=== PATIENT | female | born 1935 | race Caucasian/White ===

== ENCOUNTER 2017-06-06 13:08 | Inpatient (IN) ==
--- NOTE | 2017-06-06 13:20 | Emergency Department Note ---
Disposition Clinical Impression: Elevated serum creatinine UTI (urinary tract infection) Qualifiers: Urinary tract infection type: site unspecified Hematuria presence: without hematuria Qualified Code(s): N39.0 - Urinary tract infection, site not specified Altered mental status Qualifiers: Altered mental status type: unspecified Qualified Code(s): R41.82 - Altered mental status, unspecified Leukocytosis Qualifiers: Leukocytosis type: unspecified Qualified Code(s): D72.829 - Elevated white blood cell count, unspecified Disposition: Admitted As Inpatient Condition: Fair Referrals: Arturo Sanchez, [Non-Partnered Physician] - Forms: ED Satisfaction Letter Time of Disposition: 17:11 General Adult HPI - General Chief complaint: ED Weakness Stated complaint: Weakness Time Seen by Provider: 06/06/17 13:17 Source: patient, family Mode of arrival: ambulatory Limitations: no limitations Nursing Notes Reviewed: Yes Vital Signs Reviewed: Yes - History of Present Illness HPI Narrative: Patient is an 82-year-old female with past medical history of dementia, hypertension. She presents today with [id number] who is concerned for altered mental status above her baseline, frequent falls, fatigue, falling asleep at home. According to [id number], the patient was seen at [facility] on Friday and Friday due to slurred speech and some other neurologic complaints. She states that they did a workup there and eventually sent her home. During that stay, the patient did have elevated blood pressure and was eventually sent home with Lopressor and clonidine to take as needed for high blood pressure. She states that she was told that the patient could have had TIAs. She states that over the past 2-3 days, the patient has become more fatigued, has had falls at home, refusing to eat, falls asleep multiple times a day and even while you are talking to her. Did not notice any specific facial drooping or slurring of speech. The patient herself says that she feels tired, denies any numbness, tingling, weakness, abdominal pain, nausea or vomiting. She does state that she had chest pain one to 2 days ago that was in the center of her chest, no radiation, no associated sweating. Daughter in law also notes that the patient had blood in her stool on Friday and she is unsure if there was a workup done for this complaint. Pain Scale: 0 - Related Data Allergies Allergy/AdvReac Type Severity Reaction Status Date / Time No Known Allergies Allergy Verified 06/06/17 13:15 All systems ED: reviewed and negative except as stated. Constitutional: Denies: fever Cardiovascular: Reports: chest pain. Denies: palpitations Respiratory: Denies: cough, dyspnea, wheezes Gastrointestinal: Reports: melena. Denies: abdominal pain, nausea, vomiting, diarrhea, constipation, hematemesis Genitourinary: Denies: urgency, dysuria, frequency, hematuria Neurological: Reports: confusion, other. Denies: weakness, numbness, paresthesias Endocrine: Reports: fatigue Past Medical History - Past Medical History Attestation: Yes The following information was validated with the patient. Source: patient Medical history: Reports: dementia, hyperlipidemia, hypertension, renal disease , TIA Psychiatric history: Reports: anxiety, depression - Social History Smoking Status: Never smoker Smokeless Tobacco Status: No Alcohol use: Reports: none Drug use: Reports: unknown Physical Exam - General Limitations: no limitations General appearance: alert, other (appears tired on exam, falling asleep during interview) - Head Head exam: atraumatic, normocephalic, normal inspection - Eye Eye exam: Present: normal appearance, PERRL, EOMI - ENT ENT exam: normal exam, normal oropharynx, mucous membranes moist - Neck Neck exam: Present: normal inspection, full ROM, trachea midline - Chest Chest inspection: Present: normal inspection, symmetric chest wall rise - Respiratory Respiratory exam: Present: normal lung sounds bilaterally - Cardiovascular Cardiovascular exam: Present: regular rate, normal rhythm, normal heart sounds - Abdominal Exam Abdominal exam: Present: soft, Non-Tender. Absent: tenderness, distention, guarding, rebound, rigidity - Extremities Exam Extremities exam: Present: normal inspection. Absent: tenderness, pedal edema - Neurological Exam Neurological exam: Present: other (sleepy during exam, otherwise no focal neuro deficits. Oriented to person and place) Course Course Narrative: Vital signs within normal limits on physical exam. She was sleepy throughout the entire exam and fell asleep once or twice. Patient had no focal neurologic deficits on exam, oriented to person and place. Physical exam was fairly benign. Lungs were clear to auscultation, abdomen was soft and nontender. Chest x-ray was negative for any acute cardiopulmonary process. White blood cell count elevated at 14.7. Creatinine elevated at 1.7, I do not have a previous lab value to compare this to the family does state that she has a history of chronic kidney disease. Urinalysis shows signs of UTI. CT the head was negative for any acute intracranial process. Due to altered mental status above her baseline, frequent falls, UTI, will admit for further care. Chest X-Ray 06/06/17 13:31 IMPRESSION: No significant oval change. No acute findings. D/ / Vincent Guzman MD / Vincent Guzman MD Interpreting Provider: Vincent Guzman MD Head CT 06/06/17 13:32 IMPRESSION: 1. No acute intracranial abnormality. 2. Mild age-appropriate diffuse atrophy with minimal chronic small vessel ischemic changes. D/ / Dg Bagley MD / Dg Bagley MD Interpreting Provider: Dg Bagley MD Vital Signs Temperature 98.4 F 06/06/17 13:09 Pulse Rate 92 06/06/17 13:09 Respiratory Rate 18 06/06/17 13:09 Blood Pressure 122/74 06/06/17 13:09 O2 Sat by Pulse Oximetry 94 06/06/17 13:09 Temperature 98.4 F 06/06/17 13:09 Pulse Rate 63 06/06/17 16:39 Respiratory Rate 18 06/06/17 16:39 Blood Pressure 128/53 06/06/17 16:39 O2 Sat by Pulse Oximetry 94 06/06/17 16:39 Oxygen Delivery Oxygen Delivery Room Air Medical Decision Making - [facility] Narrative Medical decision making narrative: Vital signs within normal limits on physical exam. She was sleepy throughout the entire exam and fell asleep once or twice. Patient had no focal neurologic deficits on exam, oriented to person and place. Physical exam was fairly benign. Lungs were clear to auscultation, abdomen was soft and nontender. Chest x-ray was negative for any acute cardiopulmonary process. White blood cell count elevated at 14.7. Creatinine elevated at 1.7, I do not have a previous lab value to compare this to the family does state that she has a history of chronic kidney disease. Urinalysis shows signs of UTI. CT the head was negative for any acute intracranial process. Due to altered mental status above her baseline, frequent falls, UTI, will admit for further care. - Medical Records Medical records reviewed: Yes I reviewed the patient's medical records. - Lab Data Lab results reviewed: Yes I reviewed the patient's lab results. Result diagrams: 06/06/17 13:31 06/06/17 13:31 Lab Results 06/06/17 06/06/17 06/06/17 Range/Units 13:31 13:31 13:47 WBC 14.7 H (4.3-11.1) K/mcL RBC 4.02 (3.82-4.97) M/mcL Hgb 11.9 (11.5-15.4) g/dL Hct 36.9 (35.3-44.9) % MCV 91.8 (83.0-100.0) fL MCH 29.6 (28.0-33.3) pg MCHC 32.2 (31.6-35.5) g/dL RDW 12.4 (11.5-14.5) % Plt Count 178 (140-400) K/mcL MPV 10.3 (9.4-12.4) fL Immature Gran % 1.0 (0-4) % Seg Neutrophils % 80.3 % Lymphocytes % 12.8 % Monocytes % 5.2 % Eosinophils % 0.5 % Basophils % 0.2 % Neutrophils # 11.8 H (1.6-8.9) K/mcL Lymphocytes # 1.9 (0.6-4.6) K/mcL Monocytes # 0.8 (0.0-1.3) K/mcL Eosinophils # 0.1 (0.0-0.6) K/mcL Basophils # 0.0 (0.0-0.2) K/mcL Sodium 139 (136-145) mEq/L Potassium 3.7 (3.5-5.1) mEq/L Chloride 108 H (98-107) mEq/L Carbon Dioxide 20 L (23-29) mEq/L BUN 38 H (8-23) mg/dL Creatinine 1.72 H (0.60-1.20) mg/dL Est GFR ( Amer) 34 L (> 60) Est GFR (Non-Af Amer) 28 L (> 60) BUN/Creatinine Ratio 22 (6-26) Glucose 133 H (70-105) mg/dL Calculated Osmolality 299 (280-300) Lactic Acid (0.5-2.2) mmol/L Calcium 9.5 (8.6-10.3) mg/dL Total Bilirubin 0.5 (0.3-1.0) mg/dL AST 20 (13-39) Units/L ALT 15 (7-52) Units/L Alkaline Phosphatase 71 (34-104) Units/L Troponin I 0.05 H* (< 0.04) ng/mL Serum Total Protein 6.5 (6.4-8.9) g/dL Albumin 3.9 (3.5-5.7) g/dL Globulin 2.6 (2.4-3.5) g/dL Albumin/Globulin Ratio 1.5 (1.1-2.2) TSH 3.842 (0.340-5.600) mcIU/mL Urine Color (Yellow) Urine Clarity (Clear) Urine pH (5.0-8.0) pH Units Ur Specific [place] (1.010-1.025) Urine Protein (Neg-Trace) mg/dL Urine Glucose (UA) (Normal) mg/dL Urine Ketones (Negative) mg/dL Urine Blood (Negative) Urine Nitrite (Negative) Urine Bilirubin (Negative) Urine Urobilinogen (Normal) mg/dL Ur Leukocyte Esterase (Negative) Urine Microscopic RBC (0-3) per hpf Urine Microscopic WBC (0-3) per hpf Ur Squamous Epith Cells (None-Few) per lpf Urine Bacteria (None-Few) per hpf Hyaline Casts (None-Few) per lpf Ur Culture Indicated? (NO) Urine Opiates Screen Negative (Tuyrrw=870) ng/mL Ur Barbiturates Screen Negative (Vroniy=560) ng/mL Ur Phencyclidine Scrn Negative (Cutoff=25) ng/mL Ur Amphetamines Screen Negative (Txwtpt=8735) ng/mL U Benzodiazepines Scrn Negative (Ghning=489) ng/mL Urine Cocaine Screen Negative (Cutoff= 300) ng/mL U Marijuana (THC) Screen Negative (Cutoff = 50) ng/mL 06/06/17 06/06/17 Range/Units 13:49 13:51 WBC (4.3-11.1) K/mcL RBC (3.82-4.97) M/mcL Hgb (11.5-15.4) g/dL Hct (35.3-44.9) % MCV (83.0-100.0) fL MCH (28.0-33.3) pg MCHC (31.6-35.5) g/dL RDW (11.5-14.5) % Plt Count (140-400) K/mcL MPV (9.4-12.4) fL Immature Gran % (0-4) % Seg Neutrophils % % Lymphocytes % % Monocytes % % Eosinophils % % Basophils % % Neutrophils # (1.6-8.9) K/mcL Lymphocytes # (0.6-4.6) K/mcL Monocytes # (0.0-1.3) K/mcL Eosinophils # (0.0-0.6) K/mcL Basophils # (0.0-0.2) K/mcL Sodium (136-145) mEq/L Potassium (3.5-5.1) mEq/L Chloride (98-107) mEq/L Carbon Dioxide (23-29) mEq/L BUN (8-23) mg/dL Creatinine (0.60-1.20) mg/dL Est GFR ( Amer) (> 60) Est GFR (Non-Af Amer) (> 60) BUN/Creatinine Ratio (6-26) Glucose (70-105) mg/dL Calculated Osmolality (280-300) Lactic Acid 1.2 (0.5-2.2) mmol/L Calcium (8.6-10.3) mg/dL Total Bilirubin (0.3-1.0) mg/dL AST (13-39) Units/L ALT (7-52) Units/L Alkaline Phosphatase (34-104) Units/L Troponin I (< 0.04) ng/mL Serum Total Protein (6.4-8.9) g/dL Albumin (3.5-5.7) g/dL Globulin (2.4-3.5) g/dL Albumin/Globulin Ratio (1.1-2.2) TSH (0.340-5.600) mcIU/mL Urine Color Dark Yellow (Yellow) Urine Clarity Cloudy A (Clear) Urine pH 5.5 (5.0-8.0) pH Units Ur Specific [place] 1.028 H (1.010-1.025) Urine Protein Trace (Neg-Trace) mg/dL Urine Glucose (UA) Normal (Normal) mg/dL Urine Ketones Trace H (Negative) mg/dL Urine Blood Small H (Negative) Urine Nitrite Negative (Negative) Urine Bilirubin Small H (Negative) Urine Urobilinogen Normal (Normal) mg/dL Ur Leukocyte Esterase Large H (Negative) Urine Microscopic RBC 3-5 H (0-3) per hpf Urine Microscopic WBC 50-100 H (0-3) per hpf Ur Squamous Epith Cells Many H (None-Few) per lpf Urine Bacteria None Seen (None-Few) per hpf Hyaline Casts Few (None-Few) per lpf Ur Culture Indicated? NO. (NO) Urine Opiates Screen (Sqqdej=842) ng/mL Ur Barbiturates Screen (Wzllau=523) ng/mL Ur Phencyclidine Scrn (Cutoff=25) ng/mL Ur Amphetamines Screen (Bnomxv=4556) ng/mL U Benzodiazepines Scrn (Jfxokw=023) ng/mL Urine Cocaine Screen (Cutoff= 300) ng/mL U Marijuana (THC) Screen (Cutoff = 50) ng/mL - Radiology Data Radiology results reviewed: Yes I reviewed the patient's radiology results. Chest X-Ray 06/06/17 13:31 IMPRESSION: No significant oval change. No acute findings. D/ / Vincent Guzman MD / Vincent Guzman MD Interpreting Provider: Vincent Guzman MD Head CT 06/06/17 13:32 IMPRESSION: 1. No acute intracranial abnormality. 2. Mild age-appropriate diffuse atrophy with minimal chronic small vessel ischemic changes. D/ / Dg Bagley MD / Dg Bagley MD Interpreting Provider: Dg Bagley MD - EKG Data EKG #1 EKG attestation: Yes I reviewed and interpreted this EKG. EKG results narrative: 06/06/2017 at 13:25. A. fib. Rate 109. QRS 81. QTC 377. Mild left axis deviation. No acute ST elevation or depression. Huyen - Huyen Situation: Demographics, MOA Background: Presenting Complaint, Relevant PMH, Meds, & Allergies Assessment: Vital Signs, Course and respsone to treatment, Exam Concerns, Patient/Family Expectation, Pertinant Lab Results, Outstanding Labs Recommendation: Barrier(s) to disposition, Recommendation based on pending studies, treatments, or consults SAshwin Report Given to: Dr. Jaxson Matson Repor Time: 17:11 Attestation Statement - Attestation Attestation: I, Manny Quintana DO, examined this patient [id number] and my medical decision-making was reviewed with Dr. Jeremiah Hernandez, Resident Physician. I agree with the documented findings, disposition and treatment plan as described except to the extent set forth below. Please see my progress notes for details.
[2017-06-06 14:03] LABS: Bilirubin,Urine Small (Negative); Blood,Urine Small (Negative); Clarity,Urine Cloudy (Clear); Color,Urine Dark Yellow (Yellow); Glucose,Urine (UA) Normal (Normal); Ketones,Urine Trace mg/dL (Negative); Leukocyte Esterase,Urine Large (Negative); Nitrite,Urine Negative (Negative); PH,Urine 5.5 pH Units (5.0-8.0); Protein,Urine Trace mg/dL (Neg-Trace); Specific Gravity,Urine 1.028 (1.010-1.025); Urobilinogen,Urine Normal (Normal)
[2017-06-06 14:04] LABS: Amphetamine Screen,Urine Negative ng/mL (Cutoff=1000); Barbiturate Screen,Urine Negative ng/mL (Cutoff=200); Benzodiazepines Screen,Urine Negative ng/mL (Cutoff=200); Cannabinoid Screen,Urine Negative ng/mL (Cutoff = 50); Cocaine Screen,Urine Negative ng/mL (Cutoff= 300); Opiate Screen,Urine Negative ng/mL (Cutoff=300); Phencyclidine Screen,Urine Negative ng/mL (Cutoff=25)
[2017-06-06 14:05] LABS: Bacteria,Urine None Seen per hpf (None-Few); Hyaline Casts,Urine Few per lpf (None-Few); Squamous Epithelial Cell,Urine Many per lpf (None-Few); WBC,Urine 50-100 per hpf (0-3)
[2017-06-06 14:08] LABS: Basophils % 0.2 %; Eosinophils # 0.1 K/mcL (0.0-0.6); Eosinophils % 0.5 %; Hematocrit 36.9 % (35.3-44.9); Hemoglobin 11.9 g/dL (11.5-15.4); Lymphocytes # 1.9 K/mcL (0.6-4.6); Lymphocytes % 12.8 %; Mean Corpuscular HGB Conc 32.2 g/dL (31.6-35.5); Mean Corpuscular Hemoglobin 29.6 pg (28.0-33.3); Mean Corpuscular Volume 91.8 fL (83.0-100.0); Mean Platelet Volume 10.3 fL (9.4-12.4); Monocytes # 0.8 K/mcL (0.0-1.3); Monocytes % 5.2 %; Neutrophils # 11.8 K/mcL (1.6-8.9); Platelet Count 178 K/mcL (140-400); Red Blood Count 4.02 M/mcL (3.82-4.97); Red Cell Distribution Width 12.4 % (11.5-14.5); Segmented Neutrophils % 80.3 %
[2017-06-06 14:18] LABS: Albumin 3.9 g/dL (3.5-5.7); Albumin/Globulin Ratio 1.5 (1.1-2.2); Bilirubin,Total 0.5 mg/dL (0.3-1.0); Calcium 9.5 mg/dL (8.6-10.3); Globulin 2.6 g/dL (2.4-3.5); Potassium 3.7 mEq/L (3.5-5.1); Total Protein 6.5 g/dL (6.4-8.9)
--- NOTE | 2017-06-06 14:18 | Emergency Department Note ---
Disposition Clinical Impression: Elevated serum creatinine UTI (urinary tract infection) Qualifiers: Urinary tract infection type: site unspecified Hematuria presence: without hematuria Qualified Code(s): N39.0 - Urinary tract infection, site not specified Altered mental status Qualifiers: Altered mental status type: unspecified Qualified Code(s): R41.82 - Altered mental status, unspecified Leukocytosis Qualifiers: Leukocytosis type: unspecified Qualified Code(s): D72.829 - Elevated white blood cell count, unspecified Disposition: Admitted As Inpatient Condition: Fair Referrals: Arturo Sanchez DO [Primary Care Provider] - Forms: ED Satisfaction Letter Time of Disposition: 17:46 General Adult HPI - General Chief complaint: ED Weakness Stated complaint: Weakness Time Seen by Provider: 06/06/17 13:17 Source: patient, family Mode of arrival: ambulatory Limitations: no limitations - History of Present Illness Pain Scale: 0 - Related Data Home Medications Medication Instructions Recorded Confirmed Donepezil [Aricept] 10 mg PO HS 06/06/17 06/06/17 Doxazosin Mesylate [Cardura] 8 mg PO DAILY 06/06/17 06/06/17 Ergocalciferol (VITAMIN D2) 50,000 unit PO QWEEK 06/06/17 06/06/17 [Vitamin D2] Lisinopril [Zestril] 5 mg PO BID 06/06/17 06/06/17 Memantine HCl 10 mg PO BID 06/06/17 06/06/17 Metoprolol [Lopressor] 25 mg PO BID 06/06/17 06/06/17 Quetiapine Fumarate [Seroquel] 50 mg PO BID 06/06/17 06/06/17 Sertraline [Zoloft] 200 mg PO DAILY 06/06/17 06/06/17 Simvastatin [Zocor] 20 mg PO HS 06/06/17 06/06/17 cloNIDine HCl [CloNIDine HCl] 0.1 mg PO TID PRN 06/06/17 06/06/17 Allergies Allergy/AdvReac Type Severity Reaction Status Date / Time No Known Allergies Allergy Verified 06/06/17 13:15 Past Medical History - Past Medical History Medical history: Reports: dementia, hyperlipidemia, hypertension, renal disease , TIA Psychiatric history: Reports: anxiety, depression - Social History Smoking Status: Never smoker Smokeless Tobacco Status: No Alcohol use: Reports: none Drug use: Reports: unknown Physical Exam - General Limitations: no limitations General appearance: alert Course Vital Signs Temperature 98.4 F 06/06/17 13:09 Pulse Rate 92 06/06/17 13:09 Respiratory Rate 18 06/06/17 13:09 Blood Pressure 122/74 06/06/17 13:09 O2 Sat by Pulse Oximetry 94 06/06/17 13:09 Temperature 98.4 F 06/06/17 13:09 Pulse Rate 63 06/06/17 16:39 Respiratory Rate 18 06/06/17 16:39 Blood Pressure 128/53 06/06/17 16:39 O2 Sat by Pulse Oximetry 94 06/06/17 16:39 Oxygen Delivery Oxygen Delivery Room Air Medical Decision Making - Lab Data Result diagrams: 06/06/17 13:31 06/06/17 13:31 Lab Results 06/06/17 06/06/17 06/06/17 Range/Units 13:31 13:31 13:47 WBC 14.7 H (4.3-11.1) K/mcL RBC 4.02 (3.82-4.97) M/mcL Hgb 11.9 (11.5-15.4) g/dL Hct 36.9 (35.3-44.9) % MCV 91.8 (83.0-100.0) fL MCH 29.6 (28.0-33.3) pg MCHC 32.2 (31.6-35.5) g/dL RDW 12.4 (11.5-14.5) % Plt Count 178 (140-400) K/mcL MPV 10.3 (9.4-12.4) fL Immature Gran % 1.0 (0-4) % Seg Neutrophils % 80.3 % Lymphocytes % 12.8 % Monocytes % 5.2 % Eosinophils % 0.5 % Basophils % 0.2 % Neutrophils # 11.8 H (1.6-8.9) K/mcL Lymphocytes # 1.9 (0.6-4.6) K/mcL Monocytes # 0.8 (0.0-1.3) K/mcL Eosinophils # 0.1 (0.0-0.6) K/mcL Basophils # 0.0 (0.0-0.2) K/mcL Sodium 139 (136-145) mEq/L Potassium 3.7 (3.5-5.1) mEq/L Chloride 108 H (98-107) mEq/L Carbon Dioxide 20 L (23-29) mEq/L BUN 38 H (8-23) mg/dL Creatinine 1.72 H (0.60-1.20) mg/dL Est GFR ( Amer) 34 L (> 60) Est GFR (Non-Af Amer) 28 L (> 60) BUN/Creatinine Ratio 22 (6-26) Glucose 133 H (70-105) mg/dL Calculated Osmolality 299 (280-300) Lactic Acid (0.5-2.2) mmol/L Calcium 9.5 (8.6-10.3) mg/dL Total Bilirubin 0.5 (0.3-1.0) mg/dL AST 20 (13-39) Units/L ALT 15 (7-52) Units/L Alkaline Phosphatase 71 (34-104) Units/L Troponin I 0.05 H* (< 0.04) ng/mL Serum Total Protein 6.5 (6.4-8.9) g/dL Albumin 3.9 (3.5-5.7) g/dL Globulin 2.6 (2.4-3.5) g/dL Albumin/Globulin Ratio 1.5 (1.1-2.2) TSH 3.842 (0.340-5.600) mcIU/mL Urine Color (Yellow) Urine Clarity (Clear) Urine pH (5.0-8.0) pH Units Ur Specific [place] (1.010-1.025) Urine Protein (Neg-Trace) mg/dL Urine Glucose (UA) (Normal) mg/dL Urine Ketones (Negative) mg/dL Urine Blood (Negative) Urine Nitrite (Negative) Urine Bilirubin (Negative) Urine Urobilinogen (Normal) mg/dL Ur Leukocyte Esterase (Negative) Urine Microscopic RBC (0-3) per hpf Urine Microscopic WBC (0-3) per hpf Ur Squamous Epith Cells (None-Few) per lpf Urine Bacteria (None-Few) per hpf Hyaline Casts (None-Few) per lpf Ur Culture Indicated? (NO) Urine Opiates Screen Negative (Ushybv=355) ng/mL Ur Barbiturates Screen Negative (Lmubwo=275) ng/mL Ur Phencyclidine Scrn Negative (Cutoff=25) ng/mL Ur Amphetamines Screen Negative (Yilzog=4610) ng/mL U Benzodiazepines Scrn Negative (Jwazbf=765) ng/mL Urine Cocaine Screen Negative (Cutoff= 300) ng/mL U Marijuana (THC) Screen Negative (Cutoff = 50) ng/mL 06/06/17 06/06/17 Range/Units 13:49 13:51 WBC (4.3-11.1) K/mcL RBC (3.82-4.97) M/mcL Hgb (11.5-15.4) g/dL Hct (35.3-44.9) % MCV (83.0-100.0) fL MCH (28.0-33.3) pg MCHC (31.6-35.5) g/dL RDW (11.5-14.5) % Plt Count (140-400) K/mcL MPV (9.4-12.4) fL Immature Gran % (0-4) % Seg Neutrophils % % Lymphocytes % % Monocytes % % Eosinophils % % Basophils % % Neutrophils # (1.6-8.9) K/mcL Lymphocytes # (0.6-4.6) K/mcL Monocytes # (0.0-1.3) K/mcL Eosinophils # (0.0-0.6) K/mcL Basophils # (0.0-0.2) K/mcL Sodium (136-145) mEq/L Potassium (3.5-5.1) mEq/L Chloride (98-107) mEq/L Carbon Dioxide (23-29) mEq/L BUN (8-23) mg/dL Creatinine (0.60-1.20) mg/dL Est GFR ( Amer) (> 60) Est GFR (Non-Af Amer) (> 60) BUN/Creatinine Ratio (6-26) Glucose (70-105) mg/dL Calculated Osmolality (280-300) Lactic Acid 1.2 (0.5-2.2) mmol/L Calcium (8.6-10.3) mg/dL Total Bilirubin (0.3-1.0) mg/dL AST (13-39) Units/L ALT (7-52) Units/L Alkaline Phosphatase (34-104) Units/L Troponin I (< 0.04) ng/mL Serum Total Protein (6.4-8.9) g/dL Albumin (3.5-5.7) g/dL Globulin (2.4-3.5) g/dL Albumin/Globulin Ratio (1.1-2.2) TSH (0.340-5.600) mcIU/mL Urine Color Dark Yellow (Yellow) Urine Clarity Cloudy A (Clear) Urine pH 5.5 (5.0-8.0) pH Units Ur Specific [place] 1.028 H (1.010-1.025) Urine Protein Trace (Neg-Trace) mg/dL Urine Glucose (UA) Normal (Normal) mg/dL Urine Ketones Trace H (Negative) mg/dL Urine Blood Small H (Negative) Urine Nitrite Negative (Negative) Urine Bilirubin Small H (Negative) Urine Urobilinogen Normal (Normal) mg/dL Ur Leukocyte Esterase Large H (Negative) Urine Microscopic RBC 3-5 H (0-3) per hpf Urine Microscopic WBC 50-100 H (0-3) per hpf Ur Squamous Epith Cells Many H (None-Few) per lpf Urine Bacteria None Seen (None-Few) per hpf Hyaline Casts Few (None-Few) per lpf Ur Culture Indicated? NO. (NO) Urine Opiates Screen (Fiuvvh=443) ng/mL Ur Barbiturates Screen (Rehcyb=757) ng/mL Ur Phencyclidine Scrn (Cutoff=25) ng/mL Ur Amphetamines Screen (Nkhoqa=6223) ng/mL U Benzodiazepines Scrn (Mvhvhw=987) ng/mL Urine Cocaine Screen (Cutoff= 300) ng/mL U Marijuana (THC) Screen (Cutoff = 50) ng/mL Attestation Statement - Attestation Attestation: I, Manny Quintana DO, examined this patient [id number] and my medical decision-making was reviewed with Dr. Jeremiah Hernandez, Resident Physician. I agree with the documented findings, disposition and treatment plan as described except to the extent set forth below. Please see my progress notes for details. 82-year-old female presents to the emergency room for evaluation of generalized malaise, weakness, multiple falls. Patient is concerned at this point. She is currently in the care of the [id number]. Mdatelke-jd-awf's primary care provider at their home. Patient lives at home with family issues and no specific distress. Vital signs are reviewed and are stable. Physical exam is relatively unremarkable this point. Patient's head is atraumatic pupils are reactive to discharge her muscles are intact resources. Trachea is midline. Patient's full range of motion the neck. Lungs are clear heart is regular. Abdomen is soft nontender nondistended with no guarding no rigidity no peritoneal symptoms. Patient moves all 4 extremities with purpose. She has no signs of pitting edema. She has no neurologic deficits on exam. No ataxia no slurred speech during my physical exam. Patient is concerning for possible progression of her dementia versus infectious etiology or metabolic source to the symptoms are this time. Patient is otherwise clinically stable. Disposition will be determined workup and treatment course are established. Family is concerned because she is having a more difficult time a home with remembering things as well as being safe to be at home by herself for extended periods of time when the family is at work. They requested to possibly be placed into a [place] [facility] [place] and working on this and the outside setting already. Workup and treatment course will be completed and disposition will be determined. See detailed documentation of the physical exam, medical intervention, medical decision-making and disposition in the resident physician' s note. No critical care applied the patient's treatment course at this time. 1600 Patient has benign workup outside of [place] with slightly elevated troponin 0.05 and urinary tract infection. Urinary tract infection could be the source to the mentation related issues. He contacted be secondary to the renal insufficiency at this point. Patient denied any chest pain shortness of breath or other symptoms during these events also the weakness. Patient will be provided with antibiotic regimen. Will be admitted for definitive management and symptomatic control.
[2017-06-06 14:21] LABS: Troponin I 0.05 ng/mL (< 0.04)
[2017-06-06 14:30] LABS: Thyroid Stimulating Hormone 3.842 mcIU/mL (0.340-5.600)
[2017-06-06] MEDS ORDERED: cefTRIAXone 1,000 MG in Water for inj. (sterile) 20 ML 10 ML IVP ONE (16:15)
[2017-06-06] MEDS ORDERED: Aspirin 81 MG TAB.CHEW PO ONE (16:55)
[2017-06-06] MEDS ORDERED: Naloxone 0.4 MG/ML INJ IVP PRN (17:41)
--- NOTE | 2017-06-06 18:03 | Internal Med History&Physical ---
<Radames Oakley - Last Filed: 06/06/17 17:57> Date of Encounter: 06/06/17 Time of Encounter: 17:57 Assessment and Plan (1) CVA (cerebral vascular accident) Current visit: Yes Status: Suspected Family stated patient had slurred speech, frequent falls. Neurological exam nonfocal/nonlateralizing. CT scan of the head negative. Patient's EKG shows atrial fibrillation We will obtain echocardiogram, carotid Dopplers, MRI. PT/OT consult Speech therapy consult Start patient on aspirin, statin. Qualifiers: CVA mechanism: unspecified Qualified Code(s): I63.9 - Cerebral infarction, unspecified (2) CKD (chronic kidney disease) stage 4, GFR 15-29 ml/min Current visit: Yes Status: Chronic Family reports patient has history of CTD for Current GFR is 28. Continue to monitor. (3) Atrial fibrillation Current visit: Yes Status: Acute EKG shows irregularly irregular rhythm with a rate of [address]-T wave changes. Continue metoprolol. Patient is not on anticoagulation. Due to her frequent falls she is at risk for bleeding if started on anticoagulation. Qualifiers: Atrial fibrillation type: unspecified Qualified Code(s): I48.91 - Unspecified atrial fibrillation (4) Nausea vomiting and diarrhea Current visit: Yes Status: Acute Unclear etiology. reports foul smelling diarrhea has recent antibiotic use: start vanc PO for possible cdiff. Patient reports hematemesis and hematochezia. Hemoglobin 11.9 we will continue to trend. Fecal occult tests sent Abdominal exams within normal limits. Stool panel Zofran when necessary for nausea. Family reports she has had a colonoscopy in the past which has been negative no records on file. (5) History of dementia Current visit: Yes Status: Acute Patient has a history of dementia She follows Dr. Kelley outpatient. Previous MRI 2014 showed cerebral atrophy repeat MRI Patient is on Namenda and Aricept which will be continued. (6) Parkinsons disease Current visit: Yes Status: Suspected Patient has a resting right upper extremity tremor and a resting right lip tremor. Family reports a shuffling gait. She has frequent falls recently. Patient exhibits clogwheel rigidity Patient has a history of visual and auditory hallucinations Patient will need to follow-up with neurology outpatient. (7) Hypertension Current visit: Yes Status: Acute Patient has a history of hypertension Currently is controlled. Continue home medications of lisinopril, metoprolol, doxazosin Qualifiers: Hypertension type: essential hypertension Qualified Code(s): I10 - Essential (primary) hypertension (8) GI bleed Current visit: Yes Status: Suspected Plan as above. If hemoglobin trends down we will consult GI. Qualifiers: GI bleed type/associated pathology: unspecified gastrointestinal hemorrhage type Qualified Code(s): K92.2 - Gastrointestinal hemorrhage, unspecified (9) Altered mental status Current visit: Yes Status: Acute Unclear etiology. Infectious versus neurological continue to monitor Qualifiers: Altered mental status type: unspecified Qualified Code(s): R41.82 - Altered mental status, unspecified (10) Frequent falls Current visit: Yes Status: Acute Likely secondary to baseline Parkinson's disease on top of infectious process. consult pt/ot (11) Elevated troponin Current visit: Yes Status: Acute Patient denies chest pain Troponin of 0.05. Denies history of cardiac disease. EKG shows atrial fibrillation with a rate of [address]-T wave changes. Chest x-ray negative for acute changes. Current troponin. Echocardiogram Aspirin, statin, beta melisa (12) UTI (urinary tract infection) Current visit: Yes Status: Ruled-out Urinalysis shows WBCs and large leukocyte esterase, no bacteria, dirty catch no antibiotics needed. Qualifiers: Urinary tract infection type: site unspecified Hematuria presence: without hematuria Qualified Code(s): N39.0 - Urinary tract infection, site not specified (13) C. difficile diarrhea Current visit: Yes Status: Acute plan as above. Internal Medicine - H&P: HPI Chief complaint: Confusion Admitted From: Home Plans for Post Hospital Care: Transfer [facility] History of present illness: Ms. Pablo is a 82 year old female was brought to [facility] emergency room by her family for confusion. Family states on Friday patient had slurred speech and was confused and had a fall. This confusion and slurred speech and fall repeated on Friday and Friday. Family denies patient hitting her head/trauma secondary to falls. Patient's baseline is she is alert to self, place, time during most of the day but he have to be oriented by her family at times. Family denies facial drooping. They report patient has history of dementia, visual hallucinations and auditory hallucinations and was worked up for neurology outpatient in 2014. At that time she was started on Aricept and Namenda. On Friday patient started having nausea, vomiting and diarrhea. Patient told the family that her vomiting and diarrhea had blood in it however nobody in the family witnesses. Family denies any of these symptoms in other family members. Because patient became even more confused on Friday night. Family took patient to [facility] where she was found to have high blood pressure systolics in the 200s. There are no [facility] records as of yet. Family states patient was given multiple medications before her blood pressure improved including Nitropaste, Lopressor. Once her blood pressure improved patient was sent home on clonidine and metoprolol. Family denies patient being in contact with any sick people, recent traveling. Patient according to pharmacy records was recently prescribed cephalexin and family states she was recently treated with UTI. After returning from [facility] patient continues to have confusion and falls. This morning patient states she was getting out of bed but was too weak and therefore crawled out of the bedroom into the hallway. There she became tired and had to rest and at this time family found her. Patient has a history of hypertension, dementia, chronic kidney disease unknown etiology, hyperlipidemia. Denies history of stroke, TIA, heart disease. Past Med Surg Social Fam HX - Past Medical History Medical history: dementia, hyperlipidemia, hypertension, renal disease, TIA Psychiatric history: anxiety, depression - Social History Smoking Status: Never smoker Smokeless Tobacco Status: No Alcohol use: none Drug use: unknown Internal Medicine - H&P: Meds Donepezil [Aricept] 10 mg PO HS 06/06/17 [History] Doxazosin Mesylate [Cardura] 8 mg PO DAILY 06/06/17 [History] Ergocalciferol (VITAMIN D2) [Vitamin D2] 50,000 unit PO QWEEK 06/06/17 [History] Lisinopril [Zestril] 5 mg PO BID 06/06/17 [History] Memantine HCl 10 mg PO BID 06/06/17 [History] Metoprolol [Lopressor] 25 mg PO BID 06/06/17 [History] Quetiapine Fumarate [Seroquel] 50 mg PO BID 06/06/17 [History] Sertraline [Zoloft] 200 mg PO DAILY 06/06/17 [History] Simvastatin [Zocor] 20 mg PO HS 06/06/17 [History] cloNIDine HCl [CloNIDine HCl] 0.1 mg PO TID PRN 06/06/17 [History] 3 Allergy/AdvReac Type Severity Reaction Status Date / Time No Known Allergies Allergy Verified 06/06/17 13:15 All Systems PM: A 10-system review of systems was performed and is negative for pertinent findings except as documented above in the HPI. Review of systems: Constitutional: Denies fever, chills HEENT: Denies headache, vision changes, neck pain, sore throat, rhinorrhea Heart: Denies chest pain palpitations Lungs: Denies shortness of breath cough Abdomen: Denies abdominal pain reports nausea, vomiting, diarrhea, hematemesis, hematochezia Back: Denies back pain Kidney: Denies dysuria, hematuria Skin: warm and dry Extremities: Denies swelling, pain Neuro: Reports confusion, weakness, slurred speech - Constitutional Vitals: Temp Pulse Resp BP Pulse Ox 98.4 F 63 18 128/53 94 06/06/17 13:09 06/06/17 16:39 06/06/17 16:39 06/06/17 16:39 06/06/17 16:39 - Other Additional findings: General: Pleasant without distress HEENT: Head atraumatic, normocephalic, EOMI, PERRL, neck nontender to palpation , absent lymphadenopathy, Moist Mucous Membranes, right lip tremor Heart: Irregularly irregular rhythm Lungs: Clear to auscultation bilaterally Abdomen: Soft nontender, nondistended positive bowel sounds Skin: warm and dry Extremities: Absent pedal edema, Neuro: Cranial nerves II through XII intact, UE and LE sensation equal bilaterally, UE and LEstrength 4/5, alert and oriented to self but not to time, place, situation, Heel to gann not able to be done bilaterally due to weakness. , Unable to perform bilaterally finger to nose , Gait not tested due to weakness, b/l plantar reflexes downwards. right UE tremor. Vascular: Pedal and radial pulses 2 out of 4 Internal Med - H&P Results - Labs CBC & Chem 7: 06/06/17 13:31 06/06/17 13:31 Labs: Short CBC 06/06/17 Range/Units 13:31 WBC 14.7 H (4.3-11.1) K/mcL Hgb 11.9 (11.5-15.4) g/dL Hct 36.9 (35.3-44.9) % Plt Count 178 (140-400) K/mcL Neutrophils # 11.8 H (1.6-8.9) K/mcL BMP 06/06/17 13:31 Sodium 139 Potassium 3.7 Chloride 108 H Carbon Dioxide 20 L BUN 38 H Creatinine 1.72 H Glucose 133 H Calcium 9.5 Cardiac Enzymes 06/06/17 Range/Units 13:31 Troponin I 0.05 H* (< 0.04) ng/mL Liver Function 06/06/17 Range/Units 13:31 Total Bilirubin 0.5 (0.3-1.0) mg/dL AST 20 (13-39) Units/L ALT 15 (7-52) Units/L Alkaline Phosphatase 71 (34-104) Units/L Albumin 3.9 (3.5-5.7) g/dL Urine 06/06/17 Range/Units 13:49 Urine Color Dark Yellow (Yellow) Urine Clarity Cloudy A (Clear) Urine pH 5.5 (5.0-8.0) pH Units Ur Specific [place] 1.028 H (1.010-1.025) Urine Protein Trace (Neg-Trace) mg/dL Urine Glucose (UA) Normal (Normal) mg/dL - Impressions ITS Impressions Chest X-Ray 06/06/17 13:31 IMPRESSION: No significant oval change. No acute findings. D/ / Vincent Guzman MD / Vincent Guzman MD Interpreting Provider: Vincent Guzman MD Head CT 06/06/17 13:32 IMPRESSION: 1. No acute intracranial abnormality. 2. Mild age-appropriate diffuse atrophy with minimal chronic small vessel ischemic changes. D/ / Dg Bagley MD / Dg Bagley MD Interpreting Provider: Dg Bagley MD <Shiv Brewster - Last Filed: 06/06/17 19:06> Date of Encounter: 06/06/17 Assessment and Plan (1) C. difficile diarrhea Current visit: Yes Status: Acute (2) CVA (cerebral vascular accident) Current visit: Yes Status: Suspected Qualifiers: CVA mechanism: unspecified Qualified Code(s): I63.9 - Cerebral infarction, unspecified (3) Hypertension Current visit: Yes Status: Acute Qualifiers: Hypertension type: essential hypertension Qualified Code(s): I10 - Essential (primary) hypertension (4) Parkinsons disease Current visit: Yes Status: Suspected (5) GI bleed Current visit: Yes Status: Suspected Qualifiers: GI bleed type/associated pathology: unspecified gastrointestinal hemorrhage type Qualified Code(s): K92.2 - Gastrointestinal hemorrhage, unspecified (6) Atrial fibrillation Current visit: Yes Status: Acute Qualifiers: Atrial fibrillation type: unspecified Qualified Code(s): I48.91 - Unspecified atrial fibrillation (7) CKD (chronic kidney disease) stage 4, GFR 15-29 ml/min Current visit: Yes Status: Chronic Internal Medicine - H&P: HPI History of present illness: Ms. Pablo is a 82 year old female All Systems PM: A 10-system review of systems was performed and is negative for pertinent findings except as documented above in the HPI. - Constitutional Vitals: Temp Pulse Resp BP Pulse Ox 98.4 F 63 18 128/53 94 06/06/17 13:09 06/06/17 16:39 06/06/17 16:39 06/06/17 16:39 06/06/17 16:39 Internal Med - H&P Results - Labs CBC & Chem 7: 06/06/17 13:31 06/06/17 13:31 Labs: Short CBC 06/06/17 Range/Units 13:31 WBC 14.7 H (4.3-11.1) K/mcL Hgb 11.9 (11.5-15.4) g/dL Hct 36.9 (35.3-44.9) % Plt Count 178 (140-400) K/mcL Neutrophils # 11.8 H (1.6-8.9) K/mcL BMP 06/06/17 13:31 Sodium 139 Potassium 3.7 Chloride 108 H Carbon Dioxide 20 L BUN 38 H Creatinine 1.72 H Glucose 133 H Calcium 9.5 Cardiac Enzymes 06/06/17 Range/Units 13:31 Troponin I 0.05 H* (< 0.04) ng/mL Liver Function 06/06/17 Range/Units 13:31 Total Bilirubin 0.5 (0.3-1.0) mg/dL AST 20 (13-39) Units/L ALT 15 (7-52) Units/L Alkaline Phosphatase 71 (34-104) Units/L Albumin 3.9 (3.5-5.7) g/dL Urine 06/06/17 Range/Units 13:49 Urine Color Dark Yellow (Yellow) Urine Clarity Cloudy A (Clear) Urine pH 5.5 (5.0-8.0) pH Units Ur Specific [place] 1.028 H (1.010-1.025) Urine Protein Trace (Neg-Trace) mg/dL Urine Glucose (UA) Normal (Normal) mg/dL - Impressions ITS Impressions Chest X-Ray 06/06/17 13:31 IMPRESSION: No significant oval change. No acute findings. D/ / Vincent Guzman MD / Vincent Guzman MD Interpreting Provider: Vincent Guzman MD Head CT 06/06/17 13:32 IMPRESSION: 1. No acute intracranial abnormality. 2. Mild age-appropriate diffuse atrophy with minimal chronic small vessel ischemic changes. D/ / Dg Bagley MD / Dg Bagley MD Interpreting Provider: Dg Bagley MD - Attending Attestation I examined this patient and my medical decision-making was reviewed with the Resident Physician on 06/06/17. I agree with the documented findings, disposition and treatment plan as described except to the extent set forth below. Ms Pablo is 82 y/o female with hx of dementia presented to ED with profuse diarrhea and weakness. She has had multiple different issues recently including slurred speech, frequent falls, diarrhea and poor appetite. In ED she has had multiple episodes of diarrhea. Her EKG appears to be a fib but no history known. Exam Alert Comfortable Mucus membranes dry Heart reg No Wheeze Abd soft and nontender No edema I/P 1. Possible CVA 2. Probable C diff 3. HTN 4. Dementia Agree with assessment and plan as above. At this point patient is high risk for further neuro issues as well as complications from diarrhea, falls, probable C diff. She has been admitted inpatient.
[2017-06-06] MEDS ORDERED: Ondansetron 4 MG/2 ML VIAL IVP PRN (18:11)
[2017-06-06] MEDS ORDERED: *HR* Heparin 5,000 UNIT/ML VIAL IVP PRN ×2 (20:17)
[2017-06-06] MEDS: Vancomycin Oral Soln 250 MG/5 ML UDC PO SCH (21:32)
[2017-06-06 21:42] LABS: Hematocrit 32.6 % (35.3-44.9); Hemoglobin 10.6 g/dL (11.5-15.4); Mean Corpuscular HGB Conc 32.5 g/dL (31.6-35.5); Mean Corpuscular Hemoglobin 30.1 pg (28.0-33.3); Mean Corpuscular Volume 92.6 fL (83.0-100.0); Mean Platelet Volume 10.4 fL (9.4-12.4); Platelet Count 156 K/mcL (140-400); Red Blood Count 3.52 M/mcL (3.82-4.97); Red Cell Distribution Width 12.5 % (11.5-14.5)
[2017-06-06 21:49] LABS: INR 1.1; Prothrombin Time 11.4 Seconds (9.4-12.1)
[2017-06-06 21:51] LABS: Activated Partial Thrombo Time 24.6 Seconds (26.0-36.0)
[2017-06-06] MEDS ORDERED: *HR* Heparin 5,000 UNIT/ML VIAL SQ SCH (22:00)
[2017-06-06] MEDS: Heparin 25,000 UNIT/500 ML D5W 25,000 UNIT/500 ML BAG IVC SCH (22:55)
[2017-06-07 03:58] LABS: Basophils % 0.2 %; Eosinophils # 0.1 K/mcL (0.0-0.6); Eosinophils % 0.6 %; Hematocrit 31.9 % (35.3-44.9); Hemoglobin 10.5 g/dL (11.5-15.4); Immature Granulocytes % 0.7 % (0-4); Lymphocytes # 1.4 K/mcL (0.6-4.6); Lymphocytes % 10.6 %; Mean Corpuscular HGB Conc 32.9 g/dL (31.6-35.5); Mean Corpuscular Volume 91.1 fL (83.0-100.0); Mean Platelet Volume 10.4 fL (9.4-12.4); Monocytes # 0.8 K/mcL (0.0-1.3); Neutrophils # 10.5 K/mcL (1.6-8.9); Platelet Count 150 K/mcL (140-400); Red Cell Distribution Width 12.4 % (11.5-14.5); Segmented Neutrophils % 81.9 %
[2017-06-07 04:23] LABS: Calcium 8.9 mg/dL (8.6-10.3); Chol/HDL Ratio 2.8 (0-4.9); Potassium 3.3 mEq/L (3.5-5.1)
[2017-06-07] MEDS: Vancomycin Oral Soln 250 MG/5 ML UDC PO SCH ×4 (07:52→22:27)
[2017-06-07] MEDS: Aspirin 81 MG TAB.CHEW PO SCH (07:52)
[2017-06-07 08:48] LABS: Adenovirus Not Detected (Not Detect); Bordetella Pertussis Not Detected (Not Detect); Chlamydophila pneumoniae Not Detected (Not Detect); Coronavirus 229E Not Detected (Not Detect); Coronavirus HKU1 Not Detected (Not Detect); Coronavirus NL63 Not Detected (Not Detect); Coronavirus OC43 Not Detected (Not Detect); Human Metapneumovirus Not Detected (Not Detect); Human Rhinovirus/Enterovirus Not Detected (Not Detect); Influenza A Subtype 2009 H1 Not Detected (Not Detect); Influenza A Untypeable Not Detected (Not Detect); Influenza B Not Detected (Not Detect); Mycoplasma pneumoniae Not Detected (Not Detect); Parainfluenza Virus 1 Not Detected (Not Detect); Parainfluenza Virus 2 Not Detected (Not Detect); Parainfluenza Virus 3 Not Detected (Not Detect); Parainfluenza Virus 4 Not Detected (Not Detect); Respiratory Syncytial Virus Not Detected (Not Detect)
--- NOTE | 2017-06-07 09:40 | Internal Med Progress Note ---
Date of Encounter: 06/07/17 Time of Encounter: 09:00 - Assessment and plan (1) CVA (cerebral vascular accident) Current Visit: Yes Status: Suspected Assessment and plan: Acute CVA noted on MRI. Appears to be embolic from a fib. Continue ASA Statin started. Pt complaining of bilateral thigh pain. Will monitor on statin. Qualifiers: CVA mechanism: embolism Precerebral and cerebral artery: middle cerebral artery Laterality of affected vessel: right Qualified Code(s): I63.411 - Cerebral infarction due to embolism of right middle cerebral artery (2) C. difficile diarrhea Current Visit: Yes Status: Suspected Assessment and plan: Pt has improved with PO Vancomycin. She does not have diarrhea to send for testing now. I was very suspicious of C diff yesterday. Will complete a week of PO Vancomycin. (3) Atrial fibrillation Current Visit: Yes Status: Chronic Assessment and plan: Pt now in NSR on monitor. Initial EKG with a fib. Will transition to PO med tomorrow - most likely Eliquis. Continue beta melisa. Qualifiers: Atrial fibrillation type: paroxysmal Qualified Code(s): I48.0 - Paroxysmal atrial fibrillation (4) Hypertension Current Visit: Yes Status: Chronic Assessment and plan: Continue monitoring. Qualifiers: Hypertension type: essential hypertension Qualified Code(s): I10 - Essential (primary) hypertension (5) CKD (chronic kidney disease) stage 4, GFR 15-29 ml/min Current Visit: Yes Status: Chronic Assessment and plan: Monitoring. Avoid nephrotoxins as able. (6) GI bleed Current Visit: Yes Status: Suspected Assessment and plan: No symptoms at this time. Qualifiers: GI bleed type/associated pathology: unspecified gastrointestinal hemorrhage type Qualified Code(s): K92.2 - Gastrointestinal hemorrhage, unspecified - Subjective Interval history: Ms Pablo is currently admitted for acute CVA and presumed C diff diarrhea. She also is suspected to have parox a fib. She is currently on IV heparin. She remains high risk due to potential for worsening clinical and neurologic status. Ms Pablo says she is feeling better. She has no more diarrhea. Her MRI was positive for CVA. She is hungry. Having some discomfort in her thigh area. No abd pain noted. - Constitutional Vitals: Temp Pulse Resp BP Pulse Ox 99.7 F H 66 16 123/66 96 06/07/17 07:45 06/07/17 07:45 06/07/17 07:45 06/07/17 07:45 06/07/17 07:44 General appearance: Present: A&O X 2, answers questions appropriately - Head Head exam: Present: normocephalic - Eye Eye exam: Present: conjuntiva pink - ENT ENT exam: Present: mucous membranes moist - Respiratory Respiratory exam: Present: decreased breath sounds, CTAB. Absent: rales, rhonchi, wheezes - Cardiovascular Cardiovascular exam: Present: RRR. Absent: tachycardia Additional comments: Sinus rhythm on monitor - GI/Abdominal GI/Abdominal exam: Present: soft. Absent: tenderness - Extremities Exam Extremities exam: Present: warm. Absent: joint swelling - Neurological Exam Neurological exam: Present: alert. Absent: speech deficit - Skin Skin exam: Present: dry, warm Internal Medicine: Result - Labs CBC & Chem 7: 06/07/17 03:37 06/07/17 03:37 Labs: Short CBC 06/06/17 06/07/17 Range/Units 21:20 03:37 WBC 13.4 H 12.8 H (4.3-11.1) K/mcL Hgb 10.6 L 10.5 L (11.5-15.4) g/dL Hct 32.6 L 31.9 L (35.3-44.9) % Plt Count 156 150 (140-400) K/mcL Neutrophils # 10.5 H (1.6-8.9) K/mcL BMP 06/07/17 03:37 Sodium 138 Potassium 3.3 L Chloride 107 Carbon Dioxide 21 L BUN 42 H Creatinine 1.76 H Glucose 108 H Calcium 8.9 Cardiac Enzymes 06/06/17 06/07/17 Range/Units 21:20 03:37 Troponin I 0.05 H* 0.04 H* (< 0.04) ng/mL - ABG Interpretation ABG results: PT/INR, D-dimer PT 11.4 Seconds (9.4-12.1) 06/06/17 21:20 Consult Discharge Plan - Plan Referrals: Arturo Sanchez DO [Primary Care Provider] -
[2017-06-07] MEDS: Acetaminophen 325 MG TABLET PO PRN (10:13)
--- NOTE | 2017-06-07 14:19 | Neurology - Consult Note ---
Date of Encounter: 06/07/17 Time of Encounter: 14:15 Assessment and Plan (1) CVA (cerebral vascular accident) Current Visit: Yes Status: Suspected This patient who has an baseline history of mild dementia and tremors perhaps she may had a Parkinson dementia complex or perhaps Lewy body dementia due to the fact that she has significant hallucinations admitted with this worsening off balance and increasing confusion reading a workup she was found to have an acute infarct on an MRI of the brain According to the report Scattered punctate acute infarct within the posterior right frontal and right parietal lobes. No significant mass effect or midline shift. Mild global parenchymal volume loss with minimal chronic microvascular ischemic change.Minimal scattered sinusitis. Mastoid effusions. As she may be in A. fib at there was a concern of atrial fibrillation I would strongly recommend that we should monitor for that due to the fact that is multiple small infarcts could be embolic and she probably would need to be on anticoagulation. At the same time she would also need a stroke workup including echo and carotid. Monitor her blood pressure continue to watch for any cardiac arrhythmias. No significant focal motor deficit on neurological examination. Patient would need benefit from short-term rehabilitation or perhaps an assisted living facility if she is going to be on anticoagulation. Certainly she is at risk for frequent falls as she already had a history of frequent falls we have to look at the risk-benefit ratio for anticoagulation. Other treatment is as per primary team Qualifiers: CVA mechanism: embolism Precerebral and cerebral artery: middle cerebral artery Laterality of affected vessel: right Qualified Code(s): I63.411 - Cerebral infarction due to embolism of right middle cerebral artery (2) History of dementia Current Visit: Yes Status: Acute History of Present Illness HPI: Ms. Pablo is a 82 year old female was admitted because of increasing confusion at the same time family has NOTICED THE FOR SLURRED SPEECH AND FREQUENT FALL. Family denies patient hitting her head/trauma secondary to falls. Patient's baseline is she is alert to self, place, time during most of the day but he have to be oriented by her family at times. as per history she has dementia, visual hallucinations and auditory hallucinations and was worked up for neurology outpatient in 2014. she was started on Aricept and Namenda. On Friday patient started having nausea, vomiting and diarrhea. earlier she was seen at [facility] where she was found to have high blood pressure systolics in the 200s. later as blood pressure improved she was discharged, she was recently treated with UTI. After returning from [facility] patient continues to have confusion and falls. This morning patient states she was getting out of bed but was too weak and therefore crawled out of the bedroom into the hallway. There she became tired and had to rest and at this time family found her. Patient has a history of hypertension, dementia, chronic kidney disease unknown etiology, hyperlipidemia. Concern off A. fib but she is not on any anticoagulation at home Past Med Surg Social Fam HX - Past Medical History Medical history: dementia, hyperlipidemia, hypertension, renal disease, TIA Psychiatric history: anxiety, depression - Social History Smoking Status: Never smoker Smokeless Tobacco Status: No Alcohol use: none Drug use: unknown - Family History Mother Living Status: Hx Family Neurologic Disorders: Yes Medications and Allergies Donepezil [Aricept] 10 mg PO HS 06/06/17 [History] Doxazosin Mesylate [Cardura] 8 mg PO DAILY 06/06/17 [History] Ergocalciferol (VITAMIN D2) [Vitamin D2] 50,000 unit PO QWEEK 06/06/17 [History] Lisinopril [Zestril] 5 mg PO BID 06/06/17 [History] Memantine HCl 10 mg PO BID 06/06/17 [History] Metoprolol [Lopressor] 25 mg PO BID 06/06/17 [History] Quetiapine Fumarate [Seroquel] 50 mg PO BID 06/06/17 [History] Sertraline [Zoloft] 200 mg PO DAILY 06/06/17 [History] Simvastatin [Zocor] 20 mg PO HS 06/06/17 [History] cloNIDine HCl [CloNIDine HCl] 0.1 mg PO TID PRN 06/06/17 [History] 3 Allergy/AdvReac Type Severity Reaction Status Date / Time No Known Allergies Allergy Verified 06/06/17 13:15 All Systems: The remainder of the systems were reviewed and are negative Physical Examination - Vital Signs Vital Signs: Initial Vital Signs Temp Pulse Resp BP Pulse Ox 98.4 F 92 18 122/74 94 06/06/17 13:09 06/06/17 13:09 06/06/17 13:09 06/06/17 13:09 06/06/17 13:09 - Exam Exam: GENERAL: Comfortable in no acute distress HEENT: Normal LUNGS: CTA HEART: RRR, S1 S2 Audible, no murmur EXTREMITIES: No Pedal edema. DETAILED NEUROLOGICAL EXAMINATION: MENTAL STATUS: Oriented to person, place, date and situation. follows simple commands, decrease short term memory 0/3 Cranial Nerve Examination: CN - II: Visual Acuity, Field of Vision Normal, Fundus examination: No disk edema, Pupils- size shape reaction to light and accommodation: All normal. CN III, IV, : External ocular movements were intact, Pupils were reactive, Nodrooping of the eyelids CN V: Sensation over the face to light touch and pinprick all normal. Corneal reflexes not tested, jaw jerk normal. CN VII: No facial asymmetry, no flattening of nasolabial folds, no difficulty in closing the eyes, no loss of forehead wrinkles, no difficulty in eye-closure, frowning raising eyebrows. CNVIII: No significant hearing loss CN IX, X: Uvula centralized not deviated, Gag reflex: Not tested CN X1: Sternocleidomastoid, trapezius, normal or evidence of any weakness. CN X11: No Dysarthria, no wasting or fibrilation f tongue muscles, no deviation, tongue muscle strength normal. Motor examination: No hypertrophy, tone was normal, power grade 0-5, mild tremors noted all over Upper limbs Proximal- No difficulty in lifting the arms above the head. Distal- Noweakness in distal muscles On formal testing 4/4 all over Lower limbs Proximal- No difficulty in getting up from the sitting position Distal- No difficulty in walking On formal testing 4/4 all over Coordination: [id number] normal. Target pursuit normal finger tapping normal, Rapid alternating moment of wrist normal Sensory system: Superficial sensations- Touch normal. Pain- Pinprick, Temperature all normal, Deep sensation normal, Joint position sense normal. Cortical sensation, Tactile discrimination, localization and extinction all normal. Deep tendon reflexes. Symmetrical bilateral, No evidence of Babinski. No sign of meningeal irritation Gait Examination: Deferred Results - Laboratory Findings CBC and BMP: 06/07/17 03:37 06/07/17 03:37 Abnormal lab findings: Abnormal lab results WBC 12.8 K/mcL (4.3-11.1) H 06/07/17 03:37 RBC 3.50 M/mcL (3.82-4.97) L 06/07/17 03:37 Hgb 10.5 g/dL (11.5-15.4) L 06/07/17 03:37 Hct 31.9 % (35.3-44.9) L 06/07/17 03:37 Neutrophils # 10.5 K/mcL (1.6-8.9) H 06/07/17 03:37 APTT 54.6 Seconds (26.0-36.0) H 06/07/17 13:01 Potassium 3.3 mEq/L (3.5-5.1) L 06/07/17 03:37 Carbon Dioxide 21 mEq/L (23-29) L 06/07/17 03:37 BUN 42 mg/dL (8-23) H 06/07/17 03:37 Creatinine 1.76 mg/dL (0.60-1.20) H 06/07/17 03:37 Est GFR ( Amer) 34 (> 60) L 06/07/17 03:37 Est GFR (Non-Af Amer) 28 (> 60) L 06/07/17 03:37 Glucose 108 mg/dL (70-105) H 06/07/17 03:37 Troponin I 0.04 ng/mL (< 0.04) H* 06/07/17 03:37 Urine Clarity Cloudy (Clear) A 06/06/17 13:49 Ur Specific [place] 1.028 (1.010-1.025) H 06/06/17 13:49 Urine Ketones Trace mg/dL (Negative) H 06/06/17 13:49 Urine Blood Small (Negative) H 06/06/17 13:49 Urine Bilirubin Small (Negative) H 06/06/17 13:49 Ur Leukocyte Esterase Large (Negative) H 06/06/17 13:49 Urine Microscopic RBC 3-5 per hpf (0-3) H 06/06/17 13:49 Urine Microscopic WBC 50-100 per hpf (0-3) H 06/06/17 13:49 Ur Squamous Epith Cells Many per lpf (None-Few) H 06/06/17 13:49 - Diagnostic Findings Additional findings: MRI of Brain : Scattered punctate acute infarct within the posterior right frontal and right parietal lobes. No significant mass effect or midline shift. 2. Mild global parenchymal volume loss with minimal chronic microvascular ischemic change. 3. Minimal scattered sinusitis. Mastoid effusions. Consult Discharge Plan - Plan Referrals: Arturo Sanchez DO [Primary Care Provider] -
[2017-06-08] MEDS ORDERED: Haloperidol Lactate 5 MG/ML VIAL IVP ONE (02:03)
[2017-06-08 03:15] LABS: Hematocrit 30.7 % (35.3-44.9); Hemoglobin 10.3 g/dL (11.5-15.4); Mean Corpuscular HGB Conc 33.6 g/dL (31.6-35.5); Mean Corpuscular Hemoglobin 29.8 pg (28.0-33.3); Mean Corpuscular Volume 88.7 fL (83.0-100.0); Mean Platelet Volume 10.5 fL (9.4-12.4); Platelet Count 157 K/mcL (140-400); Red Blood Count 3.46 M/mcL (3.82-4.97); Red Cell Distribution Width 12.3 % (11.5-14.5)
[2017-06-08 04:54] LABS: Calcium 8.4 mg/dL (8.6-10.3); Magnesium 1.8 mg/dL (1.6-2.6); Potassium 3.4 mEq/L (3.5-5.1)
[2017-06-08] MEDS: Aspirin 81 MG TAB.CHEW PO SCH (09:13)
[2017-06-08] MEDS: Vancomycin Oral Soln 250 MG/5 ML UDC PO SCH ×4 (09:14→20:10)
--- NOTE | 2017-06-08 09:27 | Internal Med Progress Note ---
Date of Encounter: 06/08/17 Time of Encounter: 09:00 - Assessment and plan (1) Hypokalemia Current Visit: Yes Status: Acute Assessment and plan: Replace today. (2) CVA (cerebral vascular accident) Current Visit: Yes Status: Acute Assessment and plan: Pt with acute CVA from parox a fib. Currently on IV heparin. Will transition to PO med. PT/OT consulted. Will need SNF. Qualifiers: CVA mechanism: embolism Precerebral and cerebral artery: middle cerebral artery Laterality of affected vessel: right Qualified Code(s): I63.411 - Cerebral infarction due to embolism of right middle cerebral artery (3) C. difficile diarrhea Current Visit: Yes Status: Suspected Assessment and plan: Currently on PO Vancomycin. No stool sent initially as was not liquid. If diarrhea will send. Complete 7 days of PO Vancomycin. (4) Atrial fibrillation Current Visit: Yes Status: Chronic Assessment and plan: In a fib with RVR and on cardizem drip. Cardiology consulted today. Will change to PO anticoagulant. Qualifiers: Atrial fibrillation type: paroxysmal Qualified Code(s): I48.0 - Paroxysmal atrial fibrillation (5) Hypertension Current Visit: Yes Status: Chronic Assessment and plan: Continue monitoring. Qualifiers: Hypertension type: essential hypertension Qualified Code(s): I10 - Essential (primary) hypertension (6) CKD (chronic kidney disease) stage 4, GFR 15-29 ml/min Current Visit: Yes Status: Chronic Assessment and plan: Monitoring. Avoid nephrotoxins as able. (7) GI bleed Current Visit: Yes Status: Suspected Assessment and plan: No symptoms at this time. H/H stable. Qualifiers: GI bleed type/associated pathology: unspecified gastrointestinal hemorrhage type Qualified Code(s): K92.2 - Gastrointestinal hemorrhage, unspecified - Subjective Interval history: Ms Pablo is currently admitted for acute CVA and presumed C diff diarrhea. She is currently on IV heparin. She remains high risk due to potential for worsening clinical and neurologic status. Ms Pablo was more agitated last night. She received Haldol. She also had rapid a fib and is now on Cardizem drip in addition to heparin drip. She denies pain at this time. She had a loose stool last night but not sent as ordered cancelled when she didn't have diarrhea. No fever or chills. No CP. - Constitutional Vitals: Temp Pulse Resp BP Pulse Ox 97.3 F L 101 17 121/58 93 06/08/17 08:02 06/08/17 08:02 06/08/17 08:02 06/08/17 08:02 06/08/17 08:02 General appearance: Present: A&O X 2 - Head Head exam: Present: normocephalic - Eye Eye exam: Present: conjuntiva pink - ENT ENT exam: Present: mucous membranes dry - Respiratory Respiratory exam: Present: CTAB. Absent: rales, rhonchi, wheezes - Cardiovascular Cardiovascular exam: Present: irregular rhythm, tachycardia - GI/Abdominal GI/Abdominal exam: Present: normal bowel sounds, soft. Absent: mass, tenderness - Extremities Exam Extremities exam: Present: warm. Absent: tenderness - Neurological Exam Neurological exam: Present: alert. Absent: speech deficit - Skin Skin exam: Present: dry, warm Internal Medicine: Result - Labs CBC & Chem 7: 06/08/17 02:35 06/08/17 02:35 Labs: Short CBC 06/08/17 Range/Units 02:35 WBC 10.0 (4.3-11.1) K/mcL Hgb 10.3 L (11.5-15.4) g/dL Hct 30.7 L (35.3-44.9) % Plt Count 157 (140-400) K/mcL BMP 06/08/17 02:35 Sodium 138 Potassium 3.4 L Chloride 108 H Carbon Dioxide 19 L BUN 33 H Creatinine 1.71 H Glucose 101 Calcium 8.4 L - ABG Interpretation ABG results: PT/INR, D-dimer PT 11.4 Seconds (9.4-12.1) 06/06/17 21:20 - Impressions Impressions Echocardiogram 06/07/17 17:48 Impressions: LVEF 60-65%. Normal left ventricular diastolic function. No pulmonary hypertension. No evidence of PFO by color Doppler or agitated saline Left Ventricular Wall Motion: Rest Echo Findings All wall segments showed normal motion. Findings: Study Quality * Technically adequate exam. Right Ventricle * Normal right ventricular structure and function. Right Atrium * Normal right atrial size. Mitral Valve * Normal mitral valve structure and function. Aorta * Normally sized aortic root. ECG Findings * Normal sinus rhythm. Pericardium * There is a trivial pericardial effusion present. Left Atrium * Normal left atrial size. Tricuspid Valve * Trace tricuspid regurgitation. * No tricuspid stenosis. * Estimated RVSP is 29 mmHg. * No pulmonary hypertension. Left Ventricle * LVEF 60-65%. * Normal left ventricular diastolic function. * No segmental dysfunction. * Normal LV chamber size, wall thickness and function. Aortic Valve * No aortic stenosis. * Aortic valve not well visualized. * Trace aortic regurgitation. Pulmonic Valve * No pulmonic stenosis. * No pulmonic regurgitation. IVC * Normal IVC dimensions and inspiratory collapse. Interatrial Septum * No evidence of PFO by color Doppler or agitated saline Consult Discharge Plan - Plan Referrals: Arturo Sanchez DO [Primary Care Provider] -
--- NOTE | 2017-06-08 14:44 | Neurology Progress Note ---
Date of Encounter: 06/08/17 Time of Encounter: 14:42 Assessment and Plan (1) CVA (cerebral vascular accident) Current Visit: Yes Status: Acute Patient overall is a stable occasional confusion reported. She is currently on IV heparin. She remains high risk due to potential for worsening clinical and neurologic status. had rapid a fib and is now on Cardizem drip in addition to heparin drip. She denies pain at this time. Continue on current treatment PT consulted probably benefit from short-term rehabilitation Qualifiers: CVA mechanism: embolism Precerebral and cerebral artery: middle cerebral artery Laterality of affected vessel: right Qualified Code(s): I63.411 - Cerebral infarction due to embolism of right middle cerebral artery (2) History of dementia Current Visit: Yes Status: Acute Subjective Interval history: Patient seems to be stable occasional confusion but no new deficit she has been on heparin drip now on by mouth medication no other new findings reported. Objective - Constitutional Vitals: Temp Pulse Resp BP Pulse Ox 98.5 F 66 18 129/85 95 06/08/17 11:42 06/08/17 11:42 06/08/17 11:42 06/08/17 11:42 06/08/17 11:42 Results - Laboratory Findings CBC and BMP: 06/08/17 02:35 06/08/17 02:35 Abnormal lab findings: Abnormal lab results RBC 3.46 M/mcL (3.82-4.97) L 06/08/17 02:35 Hgb 10.3 g/dL (11.5-15.4) L 06/08/17 02:35 Hct 30.7 % (35.3-44.9) L 06/08/17 02:35 Neutrophils # 10.5 K/mcL (1.6-8.9) H 06/07/17 03:37 APTT 85.7 Seconds (26.0-36.0) H 06/08/17 02:35 Potassium 3.4 mEq/L (3.5-5.1) L 06/08/17 02:35 Chloride 108 mEq/L (98-107) H 06/08/17 02:35 Carbon Dioxide 19 mEq/L (23-29) L 06/08/17 02:35 BUN 33 mg/dL (8-23) H 06/08/17 02:35 Creatinine 1.71 mg/dL (0.60-1.20) H 06/08/17 02:35 Est GFR ( Amer) 35 (> 60) L 06/08/17 02:35 Est GFR (Non-Af Amer) 29 (> 60) L 06/08/17 02:35 Calcium 8.4 mg/dL (8.6-10.3) L 06/08/17 02:35 Troponin I 0.04 ng/mL (< 0.04) H* 06/07/17 03:37 Urine Clarity Cloudy (Clear) A 06/06/17 13:49 Ur Specific [place] 1.028 (1.010-1.025) H 06/06/17 13:49 Urine Ketones Trace mg/dL (Negative) H 06/06/17 13:49 Urine Blood Small (Negative) H 06/06/17 13:49 Urine Bilirubin Small (Negative) H 06/06/17 13:49 Ur Leukocyte Esterase Large (Negative) H 06/06/17 13:49 Urine Microscopic RBC 3-5 per hpf (0-3) H 06/06/17 13:49 Urine Microscopic WBC 50-100 per hpf (0-3) H 06/06/17 13:49 Ur Squamous Epith Cells Many per lpf (None-Few) H 06/06/17 13:49 Consult Discharge Plan - Plan Referrals: Arturo Sanchez DO [Primary Care Provider] -
--- NOTE | 2017-06-08 14:59 | Cardiology Consult Note ---
Date of Encounter: 06/08/17 Time of Encounter: 14:30 Assessment and Plan (1) CVA (cerebral vascular accident) Current Visit: Yes Status: Acute Per cardiology: -Admitted with acute CVA. -Noted to have a.fib/flutter during admission. -Management per primary and neurology services. 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 -Now a.fib/flutter RVR. -Average HR previous 12 hours noted to be 114. -Currently on cardizem drip at 5mg/hour. -[id number] score 6 (age2, gender, HTN, CVA2). Currently on heparin drip. -TTE with LVEF preserved, no PFO, no segmental wall motion abnormalities. -Continue cardizem drip, titrate for HR less than 100 and SBP greater than 90. -Recommend detention anticoagulation. Of note, patient is a falls risk, however plan is for discharge to halfway. Will have close monitoring. -Per discussion with , recommend coumadin due to inability to rule out left atrial appendage thrombus. -Recommend bridging with heparin until therapeutic on coumadin. Goal INR 2-3. -Will continue to monitor. Qualifiers: Atrial fibrillation type: paroxysmal Qualified Code(s): I48.0 - Paroxysmal atrial fibrillation (3) Elevated troponin Current Visit: Yes Status: Acute Per cardiology: -Troponins 0.05, 0.05, 0.04 in the setting of a.fib RVR, CVA. -Denies chest pain. -NO acute ishcemic ECG changes. -TTE with LVEF preserved, no segmental wall motion abnormalities. -DO not suspect NSTEMI, suspect demand ischemia related to above. No cardiac rehab consult warranted. Discussion w patient/family: The assessment and plan as outlined above was discussed with the patient who expressed understanding and agreement. All questions were answered. Thank you for involving us in the care of your patient. Please call with any questions. Discussed and reviewed with . History of Present Illness Consult date: 06/08/17 Requesting physician: Shiv Brewster Consult reason: a.fib RVR Chief complaint: weakness, multiple falls History of present illness: Ms. Pablo is a 82 year old female with a relevant past medial history of HTN, hyperlipidemia, depression, asthma, dementia. Patient presented to [facility] with family with complaints of generalized weakness, frequent falls. Patient was noted to have acute CVA. During admission, atrial fibrillation was noted. Cardiology has been consulted. Patient laying in bed upon assessment, answers yes and no questions. Denies chest pain. Denies palpitations or fluttering. Past Med Surg Social Fam HX - Past Medical History Attestation: Yes The following information was validated with the patient. Source: patient, old records reviewed Medical history: dementia, hyperlipidemia, hypertension, renal disease, TIA Psychiatric history: anxiety, depression - Social History Smoking Status: Never smoker Smokeless Tobacco Status: No Alcohol use: none Drug use: unknown - Family History Mother Living Status: Hx Family Neurologic Disorders: Yes Medications and Allergies Donepezil [Aricept] 10 mg PO HS 06/06/17 [History] Doxazosin Mesylate [Cardura] 8 mg PO DAILY 06/06/17 [History] Ergocalciferol (VITAMIN D2) [Vitamin D2] 50,000 unit PO QWEEK 06/06/17 [History] Lisinopril [Zestril] 5 mg PO BID 06/06/17 [History] Memantine HCl 10 mg PO BID 06/06/17 [History] Metoprolol [Lopressor] 25 mg PO BID 06/06/17 [History] Quetiapine Fumarate [Seroquel] 50 mg PO BID 06/06/17 [History] Sertraline [Zoloft] 200 mg PO DAILY 06/06/17 [History] Simvastatin [Zocor] 20 mg PO HS 06/06/17 [History] cloNIDine HCl [CloNIDine HCl] 0.1 mg PO TID PRN 06/06/17 [History] 3 Allergy/AdvReac Type Severity Reaction Status Date / Time No Known Allergies Allergy Verified 06/06/17 13:15 All Systems Review: The remainder of the systems were reviewed and are negative - Constitutional Constitutional: frequent falls, weakness - Cardiovascular Cardiovascular: as per HPI Physical Examination Vital Signs, Last 4 Hours Temp Pulse Resp BP Pulse Ox 06/08/17 11:42 98.5 F 66 18 129/85 95 General: Conversant, No Apparent Distress, Other (Answers yes and no questions. ) HEENT: Atraumatic, Normocephaly, Mucus Membranes Moist Neck: No JVD, Normal carotid pulses Cardiac: Normal S1 and S2, No Murmur, Other (Irregularly irregular ) Lungs: Normal Breath Sounds, No Wheeze, Rales, Rhonchi Neuro: Other (Arouses to verbal stimuli. Unable to tell me place or time. ) Abdomen: Soft, Non-Tender Skin: No rashes noted on visualized skin Musculoskeletal: No Chest Wall Tenderness Extremities: No Clubbing, No Cyanosis, No Edema, Normal Pulses Results 06/08/17 02:35 06/08/17 02:35 Lab Results Active Medications Acetaminophen (Tylenol) 650 mg PO Q6HR PRN PRN Reason: Pain or fever Stop: 12/07/17 10:06 Last Admin: 06/07/17 10:13 Dose: 650 mg Aspirin (Aspirin) 81 mg PO DAILY EVIE Stop: 12/07/17 09:01 Last Admin: 06/08/17 09:13 Dose: 81 mg Donepezil HCl (Aricept) 10 mg PO HS EVIE Stop: 12/06/17 21:01 Last Admin: 06/07/17 21:59 Dose: 10 mg Doxazosin Mesylate (Cardura) 8 mg PO HS EVIE Stop: 12/06/17 21:01 Last Admin: 06/07/17 21:58 Dose: 8 mg Heparin Sodium (Porcine) (Heparin) 4,000 unit IVP Q6HR PRN PRN Reason: SEE COMMENTS Stop: 06/08/17 20:00 Last Admin: 06/06/17 23:01 Dose: 4,000 unit Heparin Sodium (Porcine) (Heparin) 2,000 unit IVP Q6H PRN PRN Reason: SEE COMMENTS Stop: 06/08/17 20:00 Last Admin: 06/07/17 14:01 Dose: 2,000 unit Hydralazine HCl (Hydralazine) 5 mg IVP Q6HR PRN PRN Reason: Hypertension Stop: 12/06/17 18:31 Heparin Sodium/Dextrose (Heparin 25,000 Unit/500 Ml D5w) 25,000 unit in 500 mls @ 17.88 mls/hr IVC .Q24H EVIE; 12 UNIT/KG/HR PRN Reason: Protocol Stop: 06/08/17 20:00 Last Titration: 06/07/17 20:00 Dose: 13.95 unit/kg/hr, 20.8 mls/hr Diltiazem HCl 125 mg/ Sodium (Chloride) 125 mls @ 5 mls/hr IVC .Q24H EVEI; 5 MG/ HR PRN Reason: Protocol Stop: 12/08/17 02:16 Last Titration: 06/08/17 11:09 Dose: 5 mg/hr, 5 mls/hr Lisinopril (Zestril) 5 mg PO DAILY EVIE PRN Reason: Protocol Stop: 12/07/17 09:01 Last Admin: 06/08/17 09:13 Dose: 5 mg Memantine (Namenda) 10 mg PO BID [facility] Stop: 12/06/17 21:01 Last Admin: 06/08/17 09:14 Dose: 10 mg Metoprolol Tartrate (Lopressor) 25 mg PO BID EVIE Stop: 12/06/17 21:01 Last Admin: 06/08/17 09:14 Dose: 25 mg Ondansetron HCl (Zofran) 4 mg IVP ONCE PRN; Protocol PRN Reason: Nausea Potassium Chloride (Potassium Chloride) 10 meq PO DAILY [facility] Stop: 12/09/17 09:01 Quetiapine Fumarate (Seroquel) 75 mg PO HS [facility] PRN Reason: Protocol Stop: 12/08/17 14:01 Last Admin: 06/08/17 14:56 Dose: Not Given Sertraline HCl (Zoloft) 100 mg PO DAILY EVIE Stop: 12/07/17 09:01 Last Admin: 06/08/17 09:13 Dose: 100 mg Simvastatin (Zocor) 20 mg PO HS EVIE PRN Reason: Protocol Stop: 12/06/17 21:01 Last Admin: 06/07/17 21:59 Dose: 20 mg Vancomycin HCl (Vancocin) 125 mg PO QID [facility] Stop: 12/06/17 21:01 Last Admin: 06/08/17 13:34 Dose: 125 mg Warfarin Sodium (Coumadin Perpt) 1 each PO DAILY@1800 PRN PRN Reason: SEE COMMENTS Stop: 12/08/17 18:01 Warfarin Sodium (Coumadin) 2.5 mg PO ONCE ONE Stop: 06/08/17 18:01 Laboratory Tests 06/06/17 06/06/1718 13:31 21:20 03:37 Hgb Potassium Creatinine Magnesium Troponin I 0.05 H* 0.05 H* 0.04 H* 06/08/17 06/08/17 02:35 02:35 Hgb 10.3 L Potassium 3.4 L Creatinine 1.71 H Magnesium 1.8 Troponin I - Imaging and Cardiology Chest Xray: report reviewed Echo: report reviewed - EKG Interpretation EKG results cardiology: personally reviewed (ECG with a.fib/flutter RVR, HR 147. ), other (Telemetry reviewed with average HR previous 12 hours noted to be 114, a.fib. PVCs noted.) Consult Discharge Plan - Plan Referrals: Arturo Sanchez DO [Primary Care Provider] -
[2017-06-08] MEDS ORDERED: Warfarin perPT PO PRN (18:00)
[2017-06-08] MEDS ORDERED: *HR* Warfarin 2.5 MG TABLET PO ONE (18:00)
[2017-06-08] MEDS ORDERED: Apixaban 5 MG TABLET PO SCH (21:00)
[2017-06-09] MEDS: Acetaminophen 325 MG TABLET PO PRN (05:26)
[2017-06-09 05:46] LABS: Hematocrit 33.6 % (35.3-44.9); Hemoglobin 11.1 g/dL (11.5-15.4); Mean Corpuscular Hemoglobin 29.7 pg (28.0-33.3); Mean Corpuscular Volume 89.8 fL (83.0-100.0); Mean Platelet Volume 10.3 fL (9.4-12.4); Platelet Count 179 K/mcL (140-400); Red Blood Count 3.74 M/mcL (3.82-4.97); Red Cell Distribution Width 12.5 % (11.5-14.5)
[2017-06-09 05:58] LABS: Calcium 8.7 mg/dL (8.6-10.3); Magnesium 2.4 mg/dL (1.6-2.6); Potassium 3.6 mEq/L (3.5-5.1)
[2017-06-09 06:00] LABS: INR 1.1; Prothrombin Time 11.6 Seconds (9.4-12.1)
[2017-06-09] MEDS ORDERED: *HR* Heparin 5,000 UNIT/ML VIAL IVP PRN ×2 (06:00)
[2017-06-09 06:03] LABS: Activated Partial Thrombo Time 44.5 Seconds (26.0-36.0)
[2017-06-09] MEDS: Heparin 25,000 UNIT/500 ML D5W 25,000 UNIT/500 ML BAG IVC SCH ×2 (06:25→07:54)
[2017-06-09] MEDS: Vancomycin Oral Soln 250 MG/5 ML UDC PO SCH ×4 (09:32→21:35)
[2017-06-09] MEDS: Aspirin 81 MG TAB.CHEW PO SCH (09:33)
--- NOTE | 2017-06-09 10:13 | Internal Med Progress Note ---
<Radames Oakley - Last Filed: 06/09/17 10:10> Date of Encounter: 06/09/17 Time of Encounter: 10:10 - Assessment and plan (1) Atrial fibrillation Current Visit: Yes Status: Chronic Assessment and plan: Patient started on Cardizem drip. Plan to transition to by mouth Cardizem. Continue IV heparin for anticoagulation. Plan to transition to Coumadin after patient is evaluated by gastroneurology for GI bleed. Qualifiers: Atrial fibrillation type: paroxysmal Qualified Code(s): I48.0 - Paroxysmal atrial fibrillation (2) GI bleed Current Visit: Yes Status: Suspected Assessment and plan: Patient's fecal positive. GI consultation placed. Start PPI BID Qualifiers: GI bleed type/associated pathology: unspecified gastrointestinal hemorrhage type Qualified Code(s): K92.2 - Gastrointestinal hemorrhage, unspecified (3) CVA (cerebral vascular accident) Current Visit: Yes Status: Acute Assessment and plan: acute CVA as per MRI 2nd to parox afib on IV heparin Carotid duplex within normal limits. Continue aspirin, statin. Awaiting PT OT consult. Will need placement. Qualifiers: CVA mechanism: embolism Precerebral and cerebral artery: middle cerebral artery Laterality of affected vessel: right Qualified Code(s): I63.411 - Cerebral infarction due to embolism of right middle cerebral artery (4) CKD (chronic kidney disease) stage 4, GFR 15-29 ml/min Current Visit: Yes Status: Chronic Assessment and plan: Stable. Continue monitor. (5) History of dementia Current Visit: Yes Status: Acute Assessment and plan: Alert and oriented to self only. Continue home medications. (6) Parkinsons disease Current Visit: Yes Status: Suspected Assessment and plan: Follow-up with neurology outpatient. (7) Hypertension Current Visit: Yes Status: Chronic Assessment and plan: Controlled. Continue home medications. Qualifiers: Hypertension type: essential hypertension Qualified Code(s): I10 - Essential (primary) hypertension (8) Frequent falls Current Visit: Yes Status: Acute (9) Elevated troponin Current Visit: Yes Status: Acute (10) C. difficile diarrhea Current Visit: Yes Status: Suspected Assessment and plan: continue vancomycin PO for 7 days total diarrhea resolved. (11) Hypokalemia Current Visit: Yes Status: Resolved Assessment and plan: continue to monitor - Subjective Interval history: Patient alert oriented x1. denies any complaints. No acute events overnight. - Constitutional Vitals: Temp Pulse Resp BP Pulse Ox 98.2 F 69 18 111/61 91 06/09/17 07:27 06/09/17 07:27 06/09/17 07:27 06/09/17 07:27 06/09/17 07:27 General appearance: Present: A&O X 2 - Other Additional findings: General: plesant without distress Heart: Sinus rhythm Lungs: Clear to auscultation bilaterally Abdomen: Soft nontender, nondistended positive bowel sounds Skin: warm and dry Extremities: Absent pedal edema, Neuro: Alert and oriented to self only not to place, time or situation. Vascular: Pedal and radial pulses 2 out of 4 Internal Medicine: Result - Labs CBC & Chem 7: 06/09/17 05:15 06/09/17 05:15 Labs: Short CBC 06/09/17 Range/Units 05:15 WBC 7.8 (4.3-11.1) K/mcL Hgb 11.1 L (11.5-15.4) g/dL Hct 33.6 L (35.3-44.9) % Plt Count 179 (140-400) K/mcL BMP 06/09/17 05:15 Sodium 143 Potassium 3.6 Chloride 113 H Carbon Dioxide 22 L BUN 28 H Creatinine 1.63 H Glucose 90 Calcium 8.7 - ABG Interpretation ABG results: PT/INR, D-dimer PT 11.6 Seconds (9.4-12.1) 06/09/17 05:15 Consult Discharge Plan - Plan Referrals: Arturo Sanchez DO [Primary Care Provider] - <Shiv Brewster - Last Filed: 06/09/17 18:57> Date of Encounter: 06/09/17 - Assessment and plan (1) Hypokalemia Current Visit: Yes Status: Resolved (2) CVA (cerebral vascular accident) Current Visit: Yes Status: Acute Qualifiers: CVA mechanism: embolism Precerebral and cerebral artery: middle cerebral artery Laterality of affected vessel: right Qualified Code(s): I63.411 - Cerebral infarction due to embolism of right middle cerebral artery (3) C. difficile diarrhea Current Visit: Yes Status: Suspected (4) Atrial fibrillation Current Visit: Yes Status: Chronic Qualifiers: Atrial fibrillation type: paroxysmal Qualified Code(s): I48.0 - Paroxysmal atrial fibrillation (5) Hypertension Current Visit: Yes Status: Chronic Qualifiers: Hypertension type: essential hypertension Qualified Code(s): I10 - Essential (primary) hypertension (6) CKD (chronic kidney disease) stage 4, GFR 15-29 ml/min Current Visit: Yes Status: Chronic (7) GI bleed Current Visit: Yes Status: Suspected Qualifiers: GI bleed type/associated pathology: unspecified gastrointestinal hemorrhage type Qualified Code(s): K92.2 - Gastrointestinal hemorrhage, unspecified - Constitutional Vitals: Temp Pulse Resp BP Pulse Ox 98.3 F 87 16 103/70 95 06/09/17 16:27 06/09/17 16:27 06/09/17 16:27 06/09/17 16:27 06/09/17 16:27 Internal Medicine: Result - Labs CBC & Chem 7: 06/09/17 05:15 06/09/17 05:15 Labs: Short CBC 06/09/17 Range/Units 05:15 WBC 7.8 (4.3-11.1) K/mcL Hgb 11.1 L (11.5-15.4) g/dL Hct 33.6 L (35.3-44.9) % Plt Count 179 (140-400) K/mcL BMP 06/09/17 05:15 Sodium 143 Potassium 3.6 Chloride 113 H Carbon Dioxide 22 L BUN 28 H Creatinine 1.63 H Glucose 90 Calcium 8.7 - ABG Interpretation ABG results: PT/INR, D-dimer PT 11.6 Seconds (9.4-12.1) 06/09/17 05:15 - Attending Attestation I examined this patient and my medical decision-making was reviewed with the Resident Physician on 06/09/17. I agree with the documented findings, disposition and treatment plan as described except to the extent set forth below. Ms Pablo is currently admitted for parox a fib and CVA. She remains moderate to high risk due to potential for worsening clinical status. Ms Pablo is resting comfortably. No fever or chills. Heart rate better at this time. H/H stable. Exam alert Comfortable Mucus membranes dry Heart irreg and tachy Lungs diminished Abd soft I/P 1. CVA 2. A fib Further diagnoses and plan as above.
--- NOTE | 2017-06-09 11:18 | Cardiology Progress Note ---
Date of Encounter: 06/09/17 Time of Encounter: 10:30 Assessment and Plan (1) CVA (cerebral vascular accident) Current Visit: Yes Status: Acute Per cardiology: -Admitted with acute CVA. -Noted to have a.fib/flutter during admission. -Management per primary and neurology services. 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 Patient more awake today and states no history of a.fib. -Now a.fib/flutter RVR. -Average HR previous 12 hours noted to be 96. -Currently on cardizem drip at 5mg/hour. Started on oral cardizem today. -[id number] score 6 (age2, gender, HTN, CVA2). Currently on heparin drip. Coumadin has been recommended due to possibility of left atrial appendage thrombus. -Of note, now with stool positive for OB. -TTE with LVEF preserved, no PFO, no segmental wall motion abnormalities. -Agree with oral cardizem, titrate cardizem drip to off as tolerated for HR less than 100. If tolerate, consider switching to cardizem CD tomorrow for once a day cardizem dosing. -Recommend halfway anticoagulation with coumadin. Of note, patient is a falls risk, however plan is for discharge to care home. Will have close monitoring. -Recommend bridging with heparin until therapeutic on coumadin. Goal INR 2-3. -Will continue to monitor. Qualifiers: Atrial fibrillation type: paroxysmal Qualified Code(s): I48.0 - Paroxysmal atrial fibrillation (3) Elevated troponin Current Visit: Yes Status: Acute Per cardiology: -Troponins 0.05, 0.05, 0.04 in the setting of a.fib RVR, CVA. -Denies chest pain. -NO acute ishcemic ECG changes. -TTE with LVEF preserved, no segmental wall motion abnormalities. -DO not suspect NSTEMI, suspect demand ischemia related to above. No cardiac rehab consult warranted. (4) GI bleed Current Visit: Yes Status: Suspected Per cardiology: -Stool positive for OB. -ON anticoagulation. -GI has been consulted. -Management per primary and GI services. Qualifiers: GI bleed type/associated pathology: unspecified gastrointestinal hemorrhage type Qualified Code(s): K92.2 - Gastrointestinal hemorrhage, unspecified Discussion w patient/family: The assessment and plan as outlined above was discussed with the patient who expressed understanding and agreement. All questions were answered. Thank you for involving us in the care of your patient. Please call with any questions. Discussed and reviewed with . Subjective Principal diagnosis: CVA Interval history: Patient more alert today. Asking questions about care. Objective Vital Signs, Last 4 Hours Temp Pulse Resp BP Pulse Ox 06/09/17 07:27 98.2 F 69 18 111/61 91 General: Conversant, No Apparent Distress HEENT: Atraumatic, Normocephaly, Mucus Membranes Moist Neck: No JVD, Normal carotid pulses Cardiac: Normal S1 and S2, No Murmur, Other (Irregularly irregular) Lungs: Normal Breath Sounds, No Wheeze, Rales, Rhonchi Neuro: Alert and responsive, Other (Oriented to person and place. ) Abdomen: Soft, Non-Tender Skin: No rashes noted on visualized skin Musculoskeletal: No Chest Wall Tenderness Extremities: No Clubbing, No Cyanosis, No Edema, Normal Pulses Results 06/09/17 05:15 06/09/17 05:15 Lab Results Active Medications Acetaminophen (Tylenol) 650 mg PO Q6HR PRN PRN Reason: Pain or fever Stop: 12/07/17 10:06 Last Admin: 06/09/17 05:26 Dose: 650 mg Aspirin (Aspirin) 81 mg PO DAILY [facility] Stop: 12/07/17 09:01 Last Admin: 06/09/17 09:33 Dose: 81 mg Diltiazem HCl (Cardizem) 60 mg PO QID EVIE Stop: 12/09/17 10:16 Last Admin: 06/09/17 11:05 Dose: 60 mg Donepezil HCl (Aricept) 10 mg PO HS EVIE Stop: 12/06/17 21:01 Last Admin: 06/08/17 20:09 Dose: 10 mg Doxazosin Mesylate (Cardura) 8 mg PO HS EVIE Stop: 12/06/17 21:01 Last Admin: 06/08/17 20:08 Dose: 8 mg Heparin Sodium (Porcine) (Heparin) 4,000 unit IVP Q6HR PRN PRN Reason: SEE COMMENTS Stop: 12/09/17 06:01 Heparin Sodium (Porcine) (Heparin) 2,000 unit IVP Q6H PRN PRN Reason: SEE COMMENTS Stop: 12/09/17 06:01 Last Admin: 06/09/17 06:24 Dose: 2,000 unit Hydralazine HCl (Hydralazine) 5 mg IVP Q6HR PRN PRN Reason: Hypertension Stop: 12/06/17 18:31 Diltiazem HCl 125 mg/ Sodium (Chloride) 125 mls @ 5 mls/hr IVC .Q24H EVIE; 5 MG/ HR PRN Reason: Protocol Stop: 12/08/17 02:16 Last Titration: 06/09/17 11:07 Dose: 7.5 mg/hr, 7.5 mls/hr Heparin Sodium/Dextrose (Heparin 25,000 Unit/500 Ml D5w) 25,000 unit in 500 mls @ 17.88 mls/hr IVC .Q24H EVIE; 12 UNIT/KG/HR PRN Reason: Protocol Stop: 12/09/17 06:01 Last Admin: 06/09/17 06:25 Dose: 13.95 unit/kg/hr, 20.8 mls/hr Lisinopril (Zestril) 5 mg PO DAILY EVIE PRN Reason: Protocol Stop: 12/07/17 09:01 Last Admin: 06/09/17 09:33 Dose: 5 mg Memantine (Namenda) 10 mg PO BID [facility] Stop: 12/06/17 21:01 Last Admin: 06/09/17 09:33 Dose: 10 mg Metoprolol Tartrate (Lopressor) 25 mg PO BID [facility] Stop: 12/06/17 21:01 Last Admin: 06/09/17 09:33 Dose: 25 mg Ondansetron HCl (Zofran) 4 mg IVP ONCE PRN; Protocol PRN Reason: Nausea Pantoprazole Sodium (Protonix) 40 mg IVP Q12HR [facility] Stop: 12/09/17 18:01 Potassium Chloride (Potassium Chloride) 10 meq PO DAILY EVIE Stop: 12/09/17 09:01 Last Admin: 06/09/17 09:33 Dose: 10 meq Quetiapine Fumarate (Seroquel) 75 mg PO HS EVIE PRN Reason: Protocol Stop: 12/08/17 14:01 Last Admin: 06/08/17 20:09 Dose: 75 mg Sertraline HCl (Zoloft) 100 mg PO DAILY EVIE Stop: 12/07/17 09:01 Last Admin: 06/09/17 09:33 Dose: 100 mg Simvastatin (Zocor) 20 mg PO HS EVIE PRN Reason: Protocol Stop: 12/06/17 21:01 Last Admin: 06/08/17 20:08 Dose: 20 mg Vancomycin HCl (Vancocin) 125 mg PO QID EVIE Stop: 06/13/17 21:01 Last Admin: 06/09/17 09:32 Dose: 125 mg Warfarin Sodium (Coumadin Perpt) 1 each PO DAILY@1800 PRN PRN Reason: SEE COMMENTS Stop: 12/08/17 18:01 Laboratory Tests 06/09/17 06/09/17 06/09/17 05:15 05:15 05:15 Hgb 11.1 L INR 1.1 Potassium 3.6 Creatinine 1.63 H Magnesium 2.4 Stool Occult Blood 06/09/17 06:00 Hgb INR Potassium Creatinine Magnesium Stool Occult Blood Positive A - Imaging and Cardiology Chest Xray: report reviewed Echo: report reviewed - EKG Interpretation EKG results cardiology: other (Telemetry reviewed with average HR previous 12 hours noted to be 96, a.fib. PVCs noted.) Consult Discharge Plan - Plan Referrals: Arturo Sanchez DO [Primary Care Provider] -
--- NOTE | 2017-06-09 12:06 | Gastroenterology Consult Note ---
<Mirta Cuadra - Last Filed: 06/09/17 12:04> Date of Encounter: 06/09/17 Time of Encounter: 10:05 - Assessment and plan (1) GI bleed Current Visit: Yes Status: Suspected Assessment and plan: Pt admits to bright red/black stools. Nursing report dark stools, no bright red bleeding. She was admitted with acute stroke and is currently on heparin drip. Therefore she is a very poor candidate for EGD/Colonoscopy at this time. Will monitor H&H. If she has active bleeding or drop in Hgb will plan for endoscopy. 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 Pablo is a 82 year old female with a past medical history of hypertension, dementia, chronic kidney disease unknown etiology, hyperlipidemia. Denies history of stroke, TIA, heart disease. She was brought to [facility] emergency room by her family for confusion and falls at home. She was admitted with acute CVA and started on heparin drip and was found to have a-fib/flutter. On Friday patient started having nausea, vomiting and diarrhea. Patient told the family that her vomiting and diarrhea had blood in it however nobody in the family witnesses. Family denies any of these symptoms in other family members. She was recently treated with cephalexin for UTI. She reports episodes of bright red and black stools, nursing reports BM this am was dark. She also reports diarrhea 10-15 times a day for "quite a while". She denies any abdominal pain, nausea, vomiting or GERD. Pt is not at bedside to relay any history at this time. Colonoscopy: Shaniqua unsure of date EGD: NSAIDS/ASA: asa 81 mg Anticoagulants: heparin drip Past Med Surg Social Fam HX - Past Medical History Medical history: dementia, hyperlipidemia, hypertension, renal disease, TIA Psychiatric history: anxiety, depression - Social History Smoking Status: Never smoker Smokeless Tobacco Status: No Alcohol use: none Drug use: unknown - Family History Mother Living Status: Hx Family Neurologic Disorders: Yes Review of Systems: GI: as per [facility] GENERAL: denies fever, has some chills EYES: denies yellow discoloration ENT: denies pain with swallowing or difficulty swallowing CARDIO: denies chest pain, palpitations RESP: Shortness of breath with exertion : denies change in color of urine NEURO: weakness, see HPI HEME: Denies any bruising MS: denies joint pain, joint swelling or back pain. DERM: denies rash or itching PSYCH: Denies history of anxiety or depression - Constitutional Vitals: Temp Pulse Resp BP Pulse Ox 97.9 F 81 17 98/63 98 06/09/17 11:18 06/09/17 11:18 06/09/17 11:18 06/09/17 11:18 06/09/17 11:18 Exam: CONSTITUTIONAL:~alert, no acute distress.~HEAD:~normocephalic.~EYES:~no jaundice.~NECK:~no obvious swelling.~HEART:~irregular rate and rhythm, no murmurs.~LUNGS:~bilateral fair air entry.~ABDOMEN:~non distended, soft, non tender, no masses palpable, no organomegaly.~RECTAL EXAM:~Deferred.~EXTREMITIES: ~no clubbing, cyanosis or edema.~SKIN:~pallor noted no stigmata of chronic liver disease.~NEUROLOGIC:~pt oriented to person and place, no obvious focal defect.~~~~ Results - Labs CBC & Chem 7: 06/09/17 05:15 06/09/17 05:15 Labs: Last Result Calcium 8.7 mg/dL (8.6-10.3) 06/09/17 05:15 Troponin I 0.04 ng/mL (< 0.04) H* 06/07/17 03:37 Triglycerides 82 mg/dL (< 150) 06/07/17 03:37 Stool Occult Blood Positive (Negative) A 06/09/17 06:00 Urine Opiates Screen Negative ng/mL (Ackkct=776) 06/06/17 13:47 Entire Visit Hgb 11.1 g/dL (11.5-15.4) L 06/09/17 05:15 Hct 33.6 % (35.3-44.9) L 06/09/17 05:15 PT 11.6 Seconds (9.4-12.1) 06/09/17 05:15 Total Bilirubin 0.5 mg/dL (0.3-1.0) 06/06/17 13:31 AST 20 Units/L (13-39) 06/06/17 13:31 ALT 15 Units/L (7-52) 06/06/17 13:31 - ABG ABG results: PT/INR, D-dimer PT 11.6 Seconds (9.4-12.1) 06/09/17 05:15 Consult Discharge Plan - Plan Referrals: Arturo Sanchez DO [Primary Care Provider] - <Wang Castro - Last Filed: 06/09/17 17:15> Date of Encounter: 06/09/17 Time of Encounter: 17:00 - Time Spent With Patient Total time spent is greater than 50% in coordination of care (as documented) at patient's floor/unit and/or counseling patient: GI History of Present Illness - Data of Consult Requesting Physician: Shiv Brewster DO - Consult Narrative History of present illness: Ms. Pablo is a 82 year old female - Constitutional Vitals: Temp Pulse Resp BP Pulse Ox 98.3 F 87 16 103/70 95 06/09/17 16:27 06/09/17 16:27 06/09/17 16:27 06/09/17 16:27 06/09/17 16:27 Results - Labs CBC & Chem 7: 06/09/17 05:15 06/09/17 05:15 Labs: Last Result Calcium 8.7 mg/dL (8.6-10.3) 06/09/17 05:15 Troponin I 0.04 ng/mL (< 0.04) H* 06/07/17 03:37 Triglycerides 82 mg/dL (< 150) 06/07/17 03:37 Stool Occult Blood Positive (Negative) A 06/09/17 06:00 Urine Opiates Screen Negative ng/mL (Vyfykt=627) 06/06/17 13:47 Entire Visit Hgb 11.1 g/dL (11.5-15.4) L 06/09/17 05:15 Hct 33.6 % (35.3-44.9) L 06/09/17 05:15 PT 11.6 Seconds (9.4-12.1) 06/09/17 05:15 Total Bilirubin 0.5 mg/dL (0.3-1.0) 06/06/17 13:31 AST 20 Units/L (13-39) 06/06/17 13:31 ALT 15 Units/L (7-52) 06/06/17 13:31 - ABG ABG results: PT/INR, D-dimer PT 11.6 Seconds (9.4-12.1) 06/09/17 05:15 - Attending Attestation I have personally performed a face to face evaluation on this patient. I have reviewed and agree with the care plan. History and Exam by me shows: Patient seen. Denies any active abdominal symptoms. Did had anemia but hemoglobin is up today. At this point because of acute stroke we will avoid doing any scopes unless it is urgently needed.
--- NOTE | 2017-06-09 12:43 | Neurology Progress Note ---
Date of Encounter: 06/09/17 Time of Encounter: 07:35 Assessment and Plan (1) CVA (cerebral vascular accident) Current Visit: Yes Status: Acute Clinically stable suggest to continue on the current treatment she be started on Coumadin after evaluation by GI. Certainly with her age and with memory issues she is at risk for the fall but being in A. fib certainly increase the risk of devastating a stroke. She may benefit from short-term rehabilitation and physical therapy. Echo and carotid has been negative. From neurology standpoint patient is been stable okay to discharge Qualifiers: CVA mechanism: embolism Precerebral and cerebral artery: middle cerebral artery Laterality of affected vessel: right Qualified Code(s): I63.411 - Cerebral infarction due to embolism of right middle cerebral artery (2) History of dementia Current Visit: Yes Status: Acute Subjective Principal diagnosis: CVA Interval history: Patient seems to be stable occasional confusion but no new deficit she has been on heparin drip now on by mouth medication no other new findings reported Echo and carotid both were negative. She is been evaluated by a GI for history of bleeding if negative she could be started on Coumadin. Objective - Constitutional Vitals: Temp Pulse Resp BP Pulse Ox 97.9 F 81 17 98/63 98 06/09/17 11:18 06/09/17 11:18 06/09/17 11:18 06/09/17 11:18 06/09/17 11:18 Results - Laboratory Findings CBC and BMP: 06/09/17 05:15 06/09/17 05:15 Abnormal lab findings: Abnormal lab results RBC 3.74 M/mcL (3.82-4.97) L 06/09/17 05:15 Hgb 11.1 g/dL (11.5-15.4) L 06/09/17 05:15 Hct 33.6 % (35.3-44.9) L 06/09/17 05:15 Neutrophils # 10.5 K/mcL (1.6-8.9) H 06/07/17 03:37 APTT 93.2 Seconds (26.0-36.0) H D 06/09/17 11:28 Chloride 113 mEq/L (98-107) H 06/09/17 05:15 Carbon Dioxide 22 mEq/L (23-29) L 06/09/17 05:15 BUN 28 mg/dL (8-23) H 06/09/17 05:15 Creatinine 1.63 mg/dL (0.60-1.20) H 06/09/17 05:15 Est GFR ( Amer) 37 (> 60) L 06/09/17 05:15 Est GFR (Non-Af Amer) 30 (> 60) L 06/09/17 05:15 Calculated Osmolality 301 (280-300) H 06/09/17 05:15 Troponin I 0.04 ng/mL (< 0.04) H* 06/07/17 03:37 Urine Clarity Cloudy (Clear) A 06/06/17 13:49 Ur Specific [place] 1.028 (1.010-1.025) H 06/06/17 13:49 Urine Ketones Trace mg/dL (Negative) H 06/06/17 13:49 Urine Blood Small (Negative) H 06/06/17 13:49 Urine Bilirubin Small (Negative) H 06/06/17 13:49 Ur Leukocyte Esterase Large (Negative) H 06/06/17 13:49 Urine Microscopic RBC 3-5 per hpf (0-3) H 06/06/17 13:49 Urine Microscopic WBC 50-100 per hpf (0-3) H 06/06/17 13:49 Ur Squamous Epith Cells Many per lpf (None-Few) H 06/06/17 13:49 Stool Occult Blood Positive (Negative) A 06/09/17 06:00 Consult Discharge Plan - Plan Referrals: Arturo Sanchez DO [Primary Care Provider] -
[2017-06-09] MEDS: Pantoprazole 40 MG VIAL IVP SCH (18:13)
[2017-06-10 04:04] LABS: Basophils # 0.1 K/mcL (0.0-0.2); Basophils % 0.7 %; Eosinophils # 0.2 K/mcL (0.0-0.6); Eosinophils % 2.8 %; Hematocrit 32.5 % (35.3-44.9); Hemoglobin 10.6 g/dL (11.5-15.4); Immature Granulocytes % 3.3 % (0-4); Lymphocytes # 1.5 K/mcL (0.6-4.6); Lymphocytes % 18.6 %; Mean Corpuscular HGB Conc 32.6 g/dL (31.6-35.5); Mean Corpuscular Hemoglobin 29.5 pg (28.0-33.3); Mean Corpuscular Volume 90.5 fL (83.0-100.0); Mean Platelet Volume 9.9 fL (9.4-12.4); Monocytes # 0.7 K/mcL (0.0-1.3); Monocytes % 8.3 %; Neutrophils # 5.4 K/mcL (1.6-8.9); Nucleated Red Blood Cells 0.2 /100 WBC (0); Platelet Count 175 K/mcL (140-400); Red Blood Count 3.59 M/mcL (3.82-4.97); Red Cell Distribution Width 12.3 % (11.5-14.5); Segmented Neutrophils % 66.3 %
[2017-06-10 04:09] LABS: INR 1.2; Prothrombin Time 12.5 Seconds (9.4-12.1)
[2017-06-10 04:21] LABS: Calcium 8.8 mg/dL (8.6-10.3); Potassium 3.6 mEq/L (3.5-5.1)
[2017-06-10] MEDS: Pantoprazole 40 MG VIAL IVP SCH ×2 (06:25→17:20)
[2017-06-10] MEDS: Heparin 25,000 UNIT/500 ML D5W 25,000 UNIT/500 ML BAG IVC SCH (06:28)
--- NOTE | 2017-06-10 06:30 | Electrocardiograph Report ---
[address] [place] [address] Test Date: 2017-06-06 Pat Name: Emily Pablo Department: 102 Room: 2A Gender: F Technical Illustrator: Tmr : 1935 Requested By: Akbar Thurman Order Number: [id number] Reading MD: Jens Tucker MD Measurements Intervals [place] Rate: 109 P: NM: 0 QRS: -1 QRSD: 81 T: 11 QT: 313 QTc: 377 Interpretive Statements ATRIAL FIBRILLATION WITH RAPID VENTRICULAR RESPONSE Electronically Signed On 06-10-2017 6:29:08 EDT by Jens Tucker MD
--- NOTE | 2017-06-10 07:04 | Electrocardiograph Report ---
[address] [place] [address] Test Date: 2017-06-07 Pat Name: Emily Pablo Department: 112 Room: 2A Gender: F Lapeler: : 1935 Requested By: Shiv Brewster Order Number: [id number] Reading MD: Jens Tucker MD Measurements Intervals [place] Rate: 58 P: 70 GA: 152 QRS: 23 QRSD: 84 T: 45 QT: 424 QTc: 421 Interpretive Statements SINUS BRADYCARDIA Electronically Signed On 06-10-2017 7:02:53 EDT by Jens Tucker MD
--- NOTE | 2017-06-10 07:24 | Electrocardiograph Report ---
[address] [address] Test Date: 2017-06-08 Pat Name: Emily Pablo Department: 112 Room: 2A Gender: F Anesthetic Assistant: ADRIANNE : 1935 Requested By: Jeremiah Hernandez Order Number: [id number] Reading MD: Jens Tucker MD Measurements Intervals [place] Rate: 147 P: [place]: 0 QRS: 249 QRSD: 94 T: 0 QT: 285 QTc: 369 Interpretive Statements ATRIAL FLUTTER/TACHYCARDIA WITH RAPID VENTRICULAR RESPONSE INDETERMINATE AXIS BASELINE ARTIFACT COMPLICATES ACCURATE INTERPRETATION BASELINE ARTIFACT, REPEAT EKG Electronically Signed On 06-10-2017 7:23:17 EDT by Jens Tucker MD
--- NOTE | 2017-06-10 07:24 | Electrocardiograph Report ---
[place] [address] Test Date: 2017-06-08 Pat Name: Emily Pablo Department: 112 Room: 2A Gender: F Counterperson: ADRIANNE : 1935 Requested By: Shiv Brewster Order Number: [id number] Reading MD: Jens Tucker MD Measurements Intervals [place] Rate: 145 P: [place]: 0 QRS: 16 QRSD: 85 T: 75 QT: 278 QTc: 362 Interpretive Statements ATRIAL FLUTTER/TACHYCARDIA WITH RAPID VENTRICULAR RESPONSE BASELINE ARTIFACT, REPEAT EKG BASELINE ARTIFACT COMPLICATES ACCURATE INTERPRETATION Electronically Signed On 06-10-2017 7:23:00 EDT by Jens Tucker MD
[2017-06-10] MEDS: Acetaminophen 325 MG TABLET PO PRN ×2 (08:42→16:37)
[2017-06-10] MEDS: Vancomycin Oral Soln 250 MG/5 ML UDC PO SCH ×4 (08:43→19:58)
[2017-06-10] MEDS: Aspirin 81 MG TAB.CHEW PO SCH (08:43)
--- NOTE | 2017-06-10 10:14 | Internal Med Progress Note ---
Addendum entered and electronically signed by Radames Oakley DO 15:30: Talked with cardiology and discussed coumadin vs. NOAC. Patient would have to under go MECHELLE and rule out LV thrombus before she could be started on eliquis. She is not a candidate for MECHELLE at this point. Will continue coumadin. Original Note: <Radames Oakley - Last Filed: 06/10/17 10:12> Date of Encounter: 06/10/17 Time of Encounter: 10:12 - Assessment and plan (1) Atrial fibrillation Current Visit: Yes Status: Chronic Assessment and plan: Currently sinus rhythm with rate of 66. Transition off Cardizem drip to by mouth Cardizem. Anticoagulation heparin. Bridging to Coumadin. Due to patient's age and renal disease she is a poor candidate bridged with Lovenox. Therefore patient will be required to stay inpatient until therapeutic on Coumadin. Hemoglobin stable. Repeat CBC, INR, BMP tomorrow morning. Qualifiers: Atrial fibrillation type: paroxysmal Qualified Code(s): I48.0 - Paroxysmal atrial fibrillation (2) GI bleed Current Visit: Yes Status: Suspected Assessment and plan: Patient's fecal positive. GI consultation placed and report as patient's hemoglobin stable and she had recent stroke patient is not a good candidate for GI procedures. Continue PPI BID Qualifiers: GI bleed type/associated pathology: unspecified gastrointestinal hemorrhage type Qualified Code(s): K92.2 - Gastrointestinal hemorrhage, unspecified (3) CVA (cerebral vascular accident) Current Visit: Yes Status: Acute Assessment and plan: acute CVA as per MRI 2nd to parox afib on IV heparin bridging to Coumadin Carotid duplex within normal limits. Continue aspirin, Patient extreme lower extremity pain. We will transition from simvastatin to atorvastatin Awaiting PT OT consult. Will need placement. Qualifiers: CVA mechanism: embolism Precerebral and cerebral artery: middle cerebral artery Laterality of affected vessel: right Qualified Code(s): I63.411 - Cerebral infarction due to embolism of right middle cerebral artery (4) CKD (chronic kidney disease) stage 4, GFR 15-29 ml/min Current Visit: Yes Status: Chronic Assessment and plan: Stable. Continue monitor. (5) History of dementia Current Visit: Yes Status: Chronic Assessment and plan: Alert and oriented to self only. Continue home medications. (6) Parkinsons disease Current Visit: Yes Status: Suspected Assessment and plan: Follow-up with neurology outpatient. (7) Hypertension Current Visit: Yes Status: Chronic Assessment and plan: Controlled. Continue home medications. Qualifiers: Hypertension type: essential hypertension Qualified Code(s): I10 - Essential (primary) hypertension (8) Frequent falls Current Visit: Yes Status: Chronic Assessment and plan: pt/ot consult pending (9) Elevated troponin Current Visit: Yes Status: Acute Assessment and plan: 2nd to CVA Echo shows LVEF 60-65% with normal left ventricular diastolic function Chest x-ray within normal limits. EKG shows atrial fibrillation without ST-T wave changeson admission . Patient is now sinus rhythm. (10) C. difficile diarrhea Current Visit: Yes Status: Suspected Assessment and plan: continue vancomycin PO 4/7 days diarrhea resolved. (11) Hypokalemia Current Visit: Yes Status: Resolved Assessment and plan: continue to monitor - Subjective Interval history: Patient alert oriented x1. denies any complaints. No acute events overnight. She is sitting comfortably in bed eating breakfast. She complains of lower extremity pain bilaterally. May be secondary to starting her on statin. - Constitutional Vitals: Temp Pulse Resp BP Pulse Ox 97.6 F 66 16 136/70 96 06/10/17 08:07 06/10/17 08:07 06/10/17 08:07 06/10/17 08:07 06/10/17 08:07 General appearance: Present: A&O X 2 - Other Additional findings: General: pleasant without distress Heart: Sinus rhythm Lungs: Clear to auscultation bilaterally Abdomen: Soft nontender, nondistended positive bowel sounds Skin: warm and dry Extremities: Absent pedal edema, Neuro: Alert and oriented to self only not to place, time or situation. Vascular: Pedal and radial pulses 2 out of 4 Internal Medicine: Result - Labs CBC & Chem 7: 06/10/17 03:50 06/10/17 03:50 Labs: Short CBC 06/10/17 Range/Units 03:50 WBC 8.1 (4.3-11.1) K/mcL Hgb 10.6 L (11.5-15.4) g/dL Hct 32.5 L (35.3-44.9) % Plt Count 175 (140-400) K/mcL Neutrophils # 5.4 (1.6-8.9) K/mcL [facility] 06/10/17 03:50 Sodium 140 Potassium 3.6 Chloride 110 H Carbon Dioxide 21 L BUN 33 H Creatinine 1.89 H Glucose 113 H Calcium 8.8 - ABG Interpretation ABG results: PT/INR, D-dimer PT 12.5 Seconds (9.4-12.1) H 06/10/17 03:50 Consult Discharge Plan - Plan Referrals: Arturo Sanchez DO [Primary Care Provider] - <Samuel Jiménez - Last Filed: 06/10/17 17:07> Date of Encounter: 06/10/17 - Constitutional Vitals: Temp Pulse Resp BP Pulse Ox 97.9 F 58 16 100/41 93 06/10/17 15:24 06/10/17 15:24 06/10/17 15:24 06/10/17 15:24 06/10/17 15:24 Internal Medicine: Result - Labs CBC & Chem 7: 06/10/17 03:50 06/10/17 03:50 Labs: Short CBC 06/10/17 Range/Units 03:50 WBC 8.1 (4.3-11.1) K/mcL Hgb 10.6 L (11.5-15.4) g/dL Hct 32.5 L (35.3-44.9) % Plt Count 175 (140-400) K/mcL Neutrophils # 5.4 (1.6-8.9) K/mcL [facility] 06/10/17 03:50 Sodium 140 Potassium 3.6 Chloride 110 H Carbon Dioxide 21 L BUN 33 H Creatinine 1.89 H Glucose 113 H Calcium 8.8 - ABG Interpretation ABG results: PT/INR, D-dimer PT 12.5 Seconds (9.4-12.1) H 06/10/17 03:50 - Attending Attestation I performed a [id number] diagnostic evaluation of this patient and my medical decision-making was reviewed with the Resident Physician, Dr Radames Oakley. I agree with the documented findings, disposition and treatment plan as described except to the extent set forth below. With the is soft with a white 10 refusing and getting a is a a saw. A was as you clearly R0 while walking is 10 is as he is a was no was very beneficial i will Samuel Jiménez MD
[2017-06-10] MEDS ORDERED: *HR* Warfarin 2.5 MG TABLET PO ONE (18:00)
[2017-06-11 04:48] LABS: Basophils # 0.1 K/mcL (0.0-0.2); Basophils % 0.7 %; Eosinophils # 0.2 K/mcL (0.0-0.6); Eosinophils % 2.9 %; Hematocrit 31.3 % (35.3-44.9); Hemoglobin 10.5 g/dL (11.5-15.4); Immature Granulocytes % 5.3 % (0-4); Lymphocytes # 1.4 K/mcL (0.6-4.6); Lymphocytes % 19.6 %; Mean Corpuscular HGB Conc 33.5 g/dL (31.6-35.5); Mean Corpuscular Hemoglobin 30.2 pg (28.0-33.3); Mean Corpuscular Volume 89.9 fL (83.0-100.0); Mean Platelet Volume 10.3 fL (9.4-12.4); Monocytes # 0.7 K/mcL (0.0-1.3); Monocytes % 8.9 %; Neutrophils # 4.6 K/mcL (1.6-8.9); Nucleated Red Blood Cells 0.3 /100 WBC (0); Platelet Count 185 K/mcL (140-400); Red Blood Count 3.48 M/mcL (3.82-4.97); Red Cell Distribution Width 12.4 % (11.5-14.5); Segmented Neutrophils % 62.6 %
[2017-06-11 04:52] LABS: INR 1.2; Prothrombin Time 13.2 Seconds (9.4-12.1)
[2017-06-11 05:36] LABS: Calcium 8.8 mg/dL (8.6-10.3)
[2017-06-11] MEDS: Pantoprazole 40 MG VIAL IVP SCH ×2 (05:37→18:53)
[2017-06-11 05:41] LABS: Ovalocytes 1+ (Not Present); Platelet Estimate Normal (Normal); Poikilocytosis 1+ (Not Present); Potassium 3.8 mEq/L (3.5-5.1)
--- NOTE | 2017-06-11 08:16 | Internal Med Progress Note ---
<Radames Oakley - Last Filed: 06/11/17 09:36> Date of Encounter: 06/11/17 Time of Encounter: 09:37 - Assessment and plan (1) Atrial fibrillation Current Visit: Yes Status: Chronic Assessment and plan: controlled continue cardizem Anticoagulation heparin. Bridging to Coumadin. Due to patient's age and renal disease she is a poor candidate bridged with Lovenox. Therefore patient will be required to stay inpatient until therapeutic on Coumadin. Hemoglobin stable. Repeat CBC, INR, BMP tomorrow morning. Qualifiers: Atrial fibrillation type: paroxysmal Qualified Code(s): I48.0 - Paroxysmal atrial fibrillation (2) GI bleed Current Visit: Yes Status: Suspected Assessment and plan: Patient's fecal positive. hgb stable. GI reported as patient's hemoglobin stable and she had recent stroke patient is not a good candidate for GI procedures. Continue PPI BID Qualifiers: GI bleed type/associated pathology: unspecified gastrointestinal hemorrhage type Qualified Code(s): K92.2 - Gastrointestinal hemorrhage, unspecified (3) CVA (cerebral vascular accident) Current Visit: Yes Status: Acute Assessment and plan: acute CVA as per MRI 2nd to parox afib on IV heparin bridging to Coumadin Carotid duplex within normal limits. Continue aspirin, statin pt/ot consult recommend skilled OT/PT Has bed at [facility] Qualifiers: CVA mechanism: embolism Precerebral and cerebral artery: middle cerebral artery Laterality of affected vessel: right Qualified Code(s): I63.411 - Cerebral infarction due to embolism of right middle cerebral artery (4) CKD (chronic kidney disease) stage 4, GFR 15-29 ml/min Current Visit: Yes Status: Chronic Assessment and plan: Stable. Continue monitor. (5) History of dementia Current Visit: Yes Status: Chronic Assessment and plan: Alert and oriented to self only. Continue home medications. Started melatonin for poor sleep. (6) Parkinsons disease Current Visit: Yes Status: Suspected Assessment and plan: Follow-up with neurology outpatient. (7) Hypertension Current Visit: Yes Status: Chronic Assessment and plan: Controlled. Continue home medications. Qualifiers: Hypertension type: essential hypertension Qualified Code(s): I10 - Essential (primary) hypertension (8) Frequent falls Current Visit: Yes Status: Chronic Assessment and plan: pt/ot consult pending (9) Elevated troponin Current Visit: Yes Status: Acute Assessment and plan: 2nd to CVA Echo shows LVEF 60-65% with normal left ventricular diastolic function Chest x-ray within normal limits. EKG shows atrial fibrillation without ST-T wave changeson admission . Patient is now sinus rhythm. (10) C. difficile diarrhea Current Visit: Yes Status: Suspected Assessment and plan: continue vancomycin PO 5/10 days diarrhea resolved. - Subjective Interval history: Patient alert oriented x1. Reports poor sleep. No acute events overnight. She is sitting comfortably in bed. - Constitutional Vitals: Temp Pulse Resp BP Pulse Ox 98.5 F 68 16 187/67 93 06/11/17 07:40 06/11/17 07:40 06/11/17 07:40 06/11/17 07:40 06/11/17 07:40 General appearance: Present: A&O X 2 - Other Additional findings: General: pleasant without distress Heart: Sinus rhythm Lungs: Clear to auscultation bilaterally Abdomen: Soft nontender, nondistended positive bowel sounds Skin: warm and dry Extremities: Absent pedal edema, Neuro: Alert and oriented to self only not to place, time or situation. Vascular: Pedal and radial pulses 2 out of 4 Internal Medicine: Result - Labs CBC & Chem 7: 06/11/17 04:00 06/11/17 04:00 Labs: Short CBC 06/11/17 Range/Units 04:00 WBC 7.3 (4.3-11.1) K/mcL Hgb 10.5 L (11.5-15.4) g/dL Hct 31.3 L (35.3-44.9) % Plt Count 185 (140-400) K/mcL Neutrophils # 4.6 (1.6-8.9) K/mcL BMP 06/11/17 04:00 Sodium 141 Potassium 3.8 Chloride 110 H Carbon Dioxide 22 L BUN 33 H Creatinine 1.57 H Glucose 107 H Calcium 8.8 - ABG Interpretation ABG results: PT/INR, D-dimer PT 13.2 Seconds (9.4-12.1) H 06/11/17 04:00 Consult Discharge Plan - Plan Referrals: Arturo Sanchez DO [Primary Care Provider] - <Samuel Jiménez - Last Filed: 06/11/17 15:28> Date of Encounter: 06/11/17 - Constitutional Vitals: Temp Pulse Resp BP Pulse Ox 98.9 F 61 16 120/63 91 06/11/17 11:44 06/11/17 11:44 06/11/17 11:44 06/11/17 11:44 06/11/17 11:44 Internal Medicine: Result - Labs CBC & Chem 7: 06/11/17 04:00 06/11/17 04:00 Labs: Short CBC 06/11/17 Range/Units 04:00 WBC 7.3 (4.3-11.1) K/mcL Hgb 10.5 L (11.5-15.4) g/dL Hct 31.3 L (35.3-44.9) % Plt Count 185 (140-400) K/mcL Neutrophils # 4.6 (1.6-8.9) K/mcL BMP 06/11/17 04:00 Sodium 141 Potassium 3.8 Chloride 110 H Carbon Dioxide 22 L BUN 33 H Creatinine 1.57 H Glucose 107 H Calcium 8.8 - ABG Interpretation ABG results: PT/INR, D-dimer PT 13.2 Seconds (9.4-12.1) H 06/11/17 04:00 - Attending Attestation I performed a [id number] diagnostic evaluation of this patient and my medical decision-making was reviewed with the Resident Physician, Dr Radames Oakley. I agree with the documented findings, disposition and treatment plan as described except to the extent set forth below. Patient is confused and cannot provide accurate history. On exam she is awake alert oriented 2. Heart is regular. Lungs are clear. Plan: Continue heparin drip bridging to Coumadin. She is not a candidate for a NOAC due to suspicion of left atrial appendage thrombosis per cardiology. Monitor hemoglobin and hematocrit, hemodynamics, PT/INR daily. Samuel Jiménez MD
[2017-06-11] MEDS: Aspirin 81 MG TAB.CHEW PO SCH (08:56)
[2017-06-11] MEDS: Vancomycin Oral Soln 250 MG/5 ML UDC PO SCH ×4 (08:57→20:15)
[2017-06-11] MEDS: Heparin 25,000 UNIT/500 ML D5W 25,000 UNIT/500 ML BAG IVC SCH (08:59)
[2017-06-11] MEDS ORDERED: *HR* Warfarin 3 MG TABLET PO ONE ×2 (18:00→19:00)
[2017-06-11] MEDS: Melatonin 3 MG TABLET PO SCH (20:15)
[2017-06-12 03:56] LABS: INR 1.7
[2017-06-12] MEDS: Pantoprazole 40 MG VIAL IVP SCH (05:59)
--- NOTE | 2017-06-12 08:35 | Internal Med Progress Note ---
<Radames Oakley - Last Filed: 06/12/17 08:27> Date of Encounter: 06/12/17 Time of Encounter: 08:27 - Assessment and plan (1) Atrial fibrillation Status: Chronic Assessment and plan: controlled continue cardizem Anticoagulation heparin. Bridging to Coumadin. INR 1.7 today. Brandi will need one more night. D/c tomorrow Due to patient's age and renal disease she is a poor candidate bridged with Lovenox. Therefore patient will be required to stay inpatient until therapeutic on Coumadin. Repeat INR Qualifiers: Atrial fibrillation type: paroxysmal Qualified Code(s): I48.0 - Paroxysmal atrial fibrillation (2) GI bleed Status: Suspected Assessment and plan: Patient's fecal positive. hgb stable. GI reported as patient's hemoglobin stable and she had recent stroke patient is not a good candidate for GI procedures. Continue PPI BID Qualifiers: GI bleed type/associated pathology: unspecified gastrointestinal hemorrhage type Qualified Code(s): K92.2 - Gastrointestinal hemorrhage, unspecified (3) CVA (cerebral vascular accident) Status: Acute Assessment and plan: acute CVA as per MRI 2nd to parox afib on IV heparin bridging to Coumadin Carotid duplex within normal limits. Continue aspirin, statin pt/ot consult recommend skilled OT/PT Has bed at [facility] stable Qualifiers: CVA mechanism: embolism Precerebral and cerebral artery: middle cerebral artery Laterality of affected vessel: right Qualified Code(s): I63.411 - Cerebral infarction due to embolism of right middle cerebral artery (4) CKD (chronic kidney disease) stage 4, GFR 15-29 ml/min Status: Chronic Assessment and plan: Stable. Continue monitor. (5) History of dementia Status: Chronic Assessment and plan: Alert and oriented to self only. Continue home medications. Started melatonin for poor sleep. (6) Parkinsons disease Status: Suspected Assessment and plan: Follow-up with neurology outpatient. (7) Hypertension Status: Chronic Assessment and plan: Controlled. Continue home medications. Qualifiers: Hypertension type: essential hypertension Qualified Code(s): I10 - Essential (primary) hypertension (8) Frequent falls Status: Chronic Assessment and plan: pt/ot consult pending (9) Elevated troponin Status: Acute Assessment and plan: 2nd to CVA Echo shows LVEF 60-65% with normal left ventricular diastolic function Chest x-ray within normal limits. EKG shows atrial fibrillation without ST-T wave changeson admission . Patient is now sinus rhythm. (10) C. difficile diarrhea Status: Suspected Assessment and plan: continue vancomycin PO 6/10 days diarrhea resolved. - Subjective Interval history: Patient alert oriented x1. Has no complaints. No acute events overnight. - Constitutional Vitals: Temp Pulse Resp BP Pulse Ox 98 F 53 18 147/57 93 06/12/17 07:39 06/12/17 07:39 06/12/17 07:39 06/12/17 07:39 06/12/17 07:39 General appearance: Present: A&O X 1 - Other Additional findings: General: pleasant without distress Heart: Sinus rhythm Lungs: Clear to auscultation bilaterally Abdomen: Soft nontender, nondistended positive bowel sounds Skin: warm and dry Extremities: Absent pedal edema, Neuro: Alert and oriented to self only not to place, time or situation. Vascular: Pedal and radial pulses 2 out of 4 Internal Medicine: Result - Labs CBC & Chem 7: 06/11/17 04:00 06/11/17 04:00 - ABG Interpretation ABG results: PT/INR, D-dimer PT 18.0 Seconds (9.4-12.1) H 06/12/17 03:25 Consult Discharge Plan - Plan Referrals: Bonny Barger MD [Partnered Physician] - (follow up CVA, assess for parkinsons ) Arturo Sanchez DO [Primary Care Provider] - Prescriptions: Warfarin [Coumadin] 1.5 mg PO 1800 #30 tablet <Samuel Jiménez - Last Filed: 06/15/17 21:30> Date of Encounter: 06/12/17 - Constitutional Vitals: Temp Pulse Resp BP Pulse Ox 99 F 59 18 114/57 92 06/12/17 15:28 06/12/17 15:28 06/12/17 15:28 06/12/17 15:28 06/12/17 15:28 Internal Medicine: Result - Labs CBC & Chem 7: 06/11/17 04:00 06/11/17 04:00 - ABG Interpretation ABG results: PT/INR, D-dimer PT 18.0 Seconds (9.4-12.1) H 06/12/17 03:25 - Attending Attestation I performed a [id number] diagnostic evaluation of this patient and my medical decision-making was reviewed with the Resident Physician, Dr Radames Oakley. I agree with the documented findings, disposition and treatment plan as described except to the extent set forth below. Physical exam: Gen: NAD, AAOx1 Heart: Irregular, S1S2, no murmurs Lungs: CTABL Abdomen: S, NT, + bowel sounds Plan: Continue with heparin drip, bridging to Coumadin for atrial fibrillation with recent CVA. Plan to discharge from to subacute rehabilitation. Samuel Jiménez MD
[2017-06-12] MEDS: Aspirin 81 MG TAB.CHEW PO SCH (09:36)
[2017-06-12] MEDS: Vancomycin Oral Soln 250 MG/5 ML UDC PO SCH ×4 (09:37→20:11)
[2017-06-12] MEDS: Acetaminophen 325 MG TABLET PO PRN (17:16)
[2017-06-12] MEDS: Heparin 25,000 UNIT/500 ML D5W 25,000 UNIT/500 ML BAG IVC SCH (17:18)
[2017-06-12] MEDS ORDERED: *HR* Warfarin 1 MG TABLET PO ONE (18:00)
[2017-06-12] MEDS: Melatonin 3 MG TABLET PO SCH (20:09)
[2017-06-13 05:33] LABS: INR 2.4
[2017-06-13] MEDS: Aspirin 81 MG TAB.CHEW PO SCH (09:21)
[2017-06-13] MEDS: Vancomycin Oral Soln 250 MG/5 ML UDC PO SCH (09:22)
--- NOTE | 2017-06-13 10:03 | Discharge Summary ---
<Radames Oakley - Last Filed: 06/13/17 11:23> Orders not resulted at time of discharge: Pending orders 06/13/17 21:00 PTT [Activated Partial Thrombo Time] [COAG] Timed 06/14/17 04:00 PT/INR [Prothrombin Time INR] [COAG] AM 0400 Date of Encounter: 06/13/17 Time of Encounter: 09:58 - Discharge Diagnosis (1) CVA (cerebral vascular accident) Priority: Primary Status: Acute Qualifiers: CVA mechanism: embolism Precerebral and cerebral artery: middle cerebral artery Laterality of affected vessel: right Qualified Code(s): I63.411 - Cerebral infarction due to embolism of right middle cerebral artery (2) Atrial fibrillation Priority: Secondary Status: Chronic Qualifiers: Atrial fibrillation type: paroxysmal Qualified Code(s): I48.0 - Paroxysmal atrial fibrillation (3) GI bleed Priority: Secondary Status: Resolved Qualifiers: GI bleed type/associated pathology: unspecified gastrointestinal hemorrhage type Qualified Code(s): K92.2 - Gastrointestinal hemorrhage, unspecified (4) CKD (chronic kidney disease) stage 4, GFR 15-29 ml/min Priority: Secondary Status: Chronic (5) History of dementia Priority: Secondary Status: Chronic (6) Parkinsons disease Priority: Secondary Status: Suspected (7) Hypertension Priority: Secondary Status: Chronic Qualifiers: Hypertension type: essential hypertension Qualified Code(s): I10 - Essential (primary) hypertension (8) Frequent falls Priority: Secondary Status: Chronic (9) Elevated troponin Priority: Secondary Status: Acute (10) C. difficile diarrhea Priority: Secondary Status: Suspected Hospital course: Ms. Pablo is a 82 year old female presented with chief complaint of confusion and falls by her family. Family noticed patient was having slurred speech as well. Family denied any trauma secondary to falls. On presentation patient was alert to self, place, time. She did not have any facial drooping. Patient has a history of dementia, visual hallucinations, auditory hallucinations. She is on Aricept and Namenda. Patient also reported nausea, vomiting, diarrhea, hematochezia. This was not witnessed by the family. Patient's EKG showed atrial fibrillation which she does not have a history of. CT head was negative. She underwent MRI which showed scattered plan should acute infarct within the posterior right frontal and right parietal lobes. Neurology was consulted. Carotid doppler nonstenotic b/l. Echocardiogram shows EF of 60-65% with normal left ventricular diastolic function, without PFO, no pulmonary hypertension, without wall motion abnormalities. Patient was placed on aspirin , statin. Patient had signs of Parkinson's dementia as well with right upper extremity resting tremor, right lip tremor, history of hallucinations. Patient was started on heparin drip for anticoagulation. Patient had recent antibiotics 2 weeks before admission and multiple bouts of diarrhea during admission. She was started on by mouth vancomycin for possible C. difficile infection and will be treated for total 10 days. For atrial fibrillation, patient was initially started on Cardizem drip and then transitioned to Cardizem by mouth. Patient's fecal occult was positive Gi was consulted but patient did not undergo any procedure because she was high risk. Her hgb remained stable at 10.5. Patient was bridged to coumadin inpatient as she was not a candidate for lovenox. She is tolerating her diet today. She was evaluated by PT/OT and will be discharged to [facility] for PT/OT needs. New medications: Warfarin, oral vancomycin, potassium chloride, omperazole, metoprolol, diltizaem, atorvastatin, aspirin, melatonin. Discharge discussed with: patient, family, social work - Time Spent with Patient Total time spent providing and/or coordinating discharge services: Greater than 30 minutes - Discharge Medications Prescriptions: Warfarin [Coumadin] 1.5 mg PO 1800 #30 tablet Home Medications: Donepezil [Aricept] 10 mg PO HS 06/06/17 [History] Doxazosin Mesylate [Cardura] 8 mg PO DAILY 06/06/17 [History] Ergocalciferol (VITAMIN D2) [Vitamin D2] 50,000 unit PO QWEEK 06/06/17 [History] Lisinopril [Zestril] 5 mg PO BID 06/06/17 [History] Memantine HCl 10 mg PO BID 06/06/17 [History] Quetiapine Fumarate [Seroquel] 50 mg PO BID 06/06/17 [History] Sertraline [Zoloft] 200 mg PO DAILY 06/06/17 [History] Aspirin 81 mg PO DAILY tab.chew 06/13/17 [Rx] Atorvastatin [Lipitor] 10 mg PO HS tablet 06/13/17 [Rx] Diltiazem [Cardizem] 60 mg PO QID tablet 06/13/17 [Rx] Melatonin 9 mg PO HS tablet 06/13/17 [Rx] Metoprolol [Lopressor] 12.5 mg PO BID tablet 06/13/17 [Rx] Omeprazole [PriLOSEC] 40 mg PO BIDAC capsule. 06/13/17 [Rx] Potassium Chloride 10 meq PO DAILY tab.er.prt 06/13/17 [Rx] Vancomycin Oral Soln [Vancocin] 125 mg PO QID #15 udc 06/13/17 [Rx] Warfarin [Coumadin] 1.5 mg PO 1800 #30 tablet 06/13/17 [Rx] Allergies/Adverse Reactions: 3 Allergy/AdvReac Type Severity Reaction Status Date / Time No Known Allergies Allergy Verified 06/06/17 13:15 Date of admission: 06/06/17 19:01 Primary care physician: Arturo Sanchez Consults: 06/06/17 19:55 Consult to Neurology [CONS] Routine Consulting Provider: [facility] Reason for Consult: CVA Time Notified: 19:55 Call Completed: Yes 06/08/17 09:27 Consult to Cardiology [CONS] Routine Comment: Consulting Provider: [facility] Reason for Consult: Paroxysmal a fib/flutter. New CVA. Time Notified: 09:00 Call Completed: Yes 06/09/17 08:41 Consult to Gastroenterology [CONS] Routine Consulting Provider: [facility] Reason for Consult: GI bleed Time Notified: 08:42 Call Completed: Yes Discharging clinician: Radames Oakley Anticipated date of discharge: 06/13/17 - Constitutional Vitals: Temp Pulse Resp BP Pulse Ox 98.5 F 66 18 152/54 95 06/13/17 07:36 06/13/17 07:36 06/13/17 07:36 06/13/17 07:36 06/13/17 07:36 General appearance: Present: A&O X 1 - Other Additional findings: General: pleasant without distress Heart: Sinus rhythm Lungs: Clear to auscultation bilaterally Abdomen: Soft nontender, nondistended positive bowel sounds Skin: warm and dry Extremities: Absent pedal edema, Neuro: Alert and oriented to self only not to place, time or situation. Vascular: Pedal and radial pulses 2 out of 4 - Patient Status Disposition: Transfer Inpatient Rehab Fac Condition: Fair Functional capacity at discharge: wheelchair bound Overall status at discharge: patient is progressing back to baseline - Discharge Instructions Follow Up With: Arturo Sanchez DO [Primary Care Provider] - Bonny Barger MD [Partnered Physician] - (follow up CVA, assess for parkinsons ) - Diet and Activity Activity: as per physical therapy Diet: other (Advanced soft diet chopped meat) <Samuel Jiménez - Last Filed: 06/13/17 18:47> Date of Encounter: 06/13/17 Hospital course: Ms. Pablo is a 82 year old female - Time Spent with Patient Total time spent providing and/or coordinating discharge services: Date of admission: 06/06/17 19:01 Primary care physician: Arturo Sanchez Consults: 06/06/17 19:55 Consult to Neurology [CONS] Routine Consulting Provider: [facility] Reason for Consult: CVA Time Notified: 19:55 Call Completed: Yes 06/08/17 09:27 Consult to Cardiology [CONS] Routine Comment: Consulting Provider: [facility] Reason for Consult: Paroxysmal a fib/flutter. New CVA. Time Notified: 09:00 Call Completed: Yes 06/09/17 08:41 Consult to Gastroenterology [CONS] Routine Consulting Provider: [facility] Reason for Consult: GI bleed Time Notified: 08:42 Call Completed: Yes - Constitutional Vitals: Temp Pulse Resp BP Pulse Ox 98.4 F 56 17 102/50 94 06/13/17 11:44 06/13/17 11:44 06/13/17 11:44 06/13/17 11:44 06/13/17 11:44 - Attending Attestation I performed a [id number] diagnostic evaluation of this patient and my medical decision-making was reviewed with the Resident Physician, Dr Radames Oakley. I agree with the documented findings, disposition and treatment plan as described except to the extent set forth below. Patient admits to feeling sad at times and anxious about her medical conditions but denies suicidal ideation. She expresses an optimistic outlook on life. She was to be discharged back home to spend time with her friends. Physical exam: Gen: NAD, AAOx3 Heart: RRR, S1S2, no murmurs Lungs: CTABL Abdomen: S, NT, + bowel sounds Hemoglobin has been stable. She will continue with Coumadin. Tight INR control to maintain between 2 and 3. Monitor CBC at least weekly to detect early GI bleed if occurring. She is medically stable for discharge home. Samuel Jiménez MD
--- NOTE | 2017-06-13 10:11 | Physician Discharge Referral ---
[facility] Ref[facility] Info [facility] Provider in Charge: Dr. Jiménez Provider in Charge after Transfer: PCP Institutional Level of Care: Skilled - Diagnosis (1) CVA (cerebral vascular accident) Priority: Primary Status: Acute (2) Atrial fibrillation Priority: Secondary Status: Chronic (3) GI bleed Priority: Secondary Status: Resolved (4) CKD (chronic kidney disease) stage 4, GFR 15-29 ml/min Priority: Secondary Status: Chronic (5) History of dementia Priority: Secondary Status: Chronic (6) Parkinsons disease Priority: Secondary Status: Suspected (7) Hypertension Priority: Secondary Status: Chronic (8) Frequent falls Priority: Secondary Status: Chronic (9) Elevated troponin Priority: Secondary Status: Acute (10) C. difficile diarrhea Priority: Secondary Status: Suspected Prognosis: Fair Aware of Diagnosis: Patient, Family - Transfer Medications Prescriptions: Warfarin [Coumadin] 1.5 mg PO 1800 #30 tablet Home Medications: Donepezil [Aricept] 10 mg PO HS 06/06/17 [History] Doxazosin Mesylate [Cardura] 8 mg PO DAILY 06/06/17 [History] Ergocalciferol (VITAMIN D2) [Vitamin D2] 50,000 unit PO QWEEK 06/06/17 [History] Lisinopril [Zestril] 5 mg PO BID 06/06/17 [History] Memantine HCl 10 mg PO BID 06/06/17 [History] Quetiapine Fumarate [Seroquel] 50 mg PO BID 06/06/17 [History] Sertraline [Zoloft] 200 mg PO DAILY 06/06/17 [History] Aspirin 81 mg PO DAILY tab.chew 06/13/17 [Rx] Atorvastatin [Lipitor] 10 mg PO HS tablet 06/13/17 [Rx] Diltiazem [Cardizem] 60 mg PO QID tablet 06/13/17 [Rx] Melatonin 9 mg PO HS tablet 06/13/17 [Rx] Metoprolol [Lopressor] 12.5 mg PO BID tablet 06/13/17 [Rx] Omeprazole [PriLOSEC] 40 mg PO BIDAC capsule. 06/13/17 [Rx] Potassium Chloride 10 meq PO DAILY tab.er.prt 06/13/17 [Rx] Vancomycin Oral Soln [Vancocin] 125 mg PO QID #15 udc 06/13/17 [Rx] Warfarin [Coumadin] 1.5 mg PO 1800 #30 tablet 06/13/17 [Rx] Allergies/Adverse Reactions: 3 Allergy/AdvReac Type Severity Reaction Status Date / Time No Known Allergies Allergy Verified 06/06/17 13:15 - Respiratory Orders None Smoking Cessation: Smoking cessation has been advised. For more information, call the Office Center Quit Line at [phone]-UYJO-NOW. - Lab Orders Lab Orders: CBC (CBC on 06/16/2017 to follow anemia), Other (include drug levels w /frequency) (Patient will need INR on 06/17/19 and Qweek there after.) - Advance Directives Code Status: DNR-Arrest/Don't Intubate - Mobility Orders Chair - Rehabiliation Orders Rehab Potential: Fair Rehab Orders: Evaluation for Physical Therapy, Evaluation for Occupational Therapy - Treatments Skin tear care topically daily PRN per policy - Diet Orders Mechanical Soft CERTIFICATION: I certify that the transfer of the above named patient to an Extended Care Facility is necessary for the continuing treatment of the diagnosis listed. The above information is true and accurate reflection of patient's current condition. Confidential - Redisclosure prohibited without a patient's written consent.
[2017-06-13 11:45] VITALS: BP 102/50
[2017-06-13] MEDS ORDERED: *HR* Warfarin 1 MG TABLET PO ONE (18:00)
== END 2017-06-13 12:07 | DRG 65 ==
LOC: EMEROO 13:08 → 2ANU 13:08 → SUATTDRO 19:01 → 2ANU 19:17
PROVIDERS: ADMIT Internal Medicine; ATTEND Internal Medicine